=== PATIENT | male | born 1995 | race Caucasian/White ===

== ENCOUNTER 2023-05-11 10:00 | Outpatient (AMB) | payer OTHER, SELFPAY ==
--- NOTE | 2023-05-11 10:05 | MHC.PC.OV ---
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 Transferring care from Dr Hummel ([facility]). Medical records have not been requested and have not received. Loan Service Officer Required: No Client Service Executive: Not Required per policy Accompanied by: Self / Same As Patient Allergies amoxicillin Allergy (Intermediate, Verified 05/11/23 10:38) Hives Penicillins Allergy (Intermediate, Verified 05/11/23 10:38) Hives Medication List - Last Reconciled 05/11/23 by Ankit Elam PA-C No Known Home Meds Tobacco use date assessed: 05/11/23 Dental Screening Dental Screen Date: 05/11/23 Did you have a dental visit in the last 12 months?: No Did you have a dental problem in the last 6 months where you did not have access to dental care?: No Was dental information given to patient?: No 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 Previous PCP was at [facility]. Concern--> reports over the last 12-15 years he has been suffering with and tremor in his upper extremities. He reports a tremor gets worse when trying to feed himself for drink out of a cup, use a pen or pencil to right. His tremor has been causing severe anxiety which has caused him not to be able to hold a job. She is he does not know any tremor at rest. He reports all does not changes tremor. He would like evaluation and possible treatment for this tremor. .. Tobacco dependency: He does report having half pack of cigarettes per day and does understand he needs to quit. Offered nicotine replacement though he declines at this time. Of note was noted to have a 5 mm pulmonary nodule incidentally noted on CT abdomen and pelvis He does report moderately drinking alcohol 4-5 times per week and does understand he needs to cut down his drinking. VAccine: UTD with COVID vaccine, declines flu , need Tdap will like to hold off for now. [facility] Surgical History No pertinent past surgical history Family History (Updated 05/11/23 @ 10:47 by Ankit Elam PA-C) Mother Breast cancer Father Heart disease Other Mental health disorder Substance use disorder Social History (Updated 05/11/23 @ 10:49 by Ankit Elam PA-C) Housing: House Alcohol intake: current Alcohol intake frequency: a few times a week Patient Tobacco Use Status: Current everyday Tobacco user Tobacco use type: Cigarette Cigarette Packs Per Day: 0.5 Cigarettes Per Day: 10 e-Cigarette/Vaping Use: Never Used Second Hand Smoke Exposure: Yes Substance Use Type: Marijuana service: No Current occupational status: unemployed Cognitive needs: No Hearing needs: No Vision needs: Yes (glasses) Questionnaire PHQ-9 Over the last 2 weeks, how often have you been bothered by any of the following problems? 1. Little interest or pleasure in doing things: not at all 2. Feeling down, depressed, or hopeless: not at all 3. Trouble falling or staying asleep, or sleeping too much: not at all 4. Feeling tired or having little energy: not at all 5. Poor appetite or overeating: not at all 6. Feeling bad about yourself - or that you are a failure or have let yourself or your family down: not at all 7. Trouble concentrating on things, such as reading the newspaper or watching television: not at all 8. Moving or speaking so slowly that other people could have noticed. Or the opposite - being so fidgety or restless that you have been moving around a lot more than usual: not at all 9. Thoughts that you would be better off or of hurting yourself in some way: not at all Total score: 0 Depression Screening Interpretation: Negative 85496 - PHQ-9 Billing: Yes Source: Developed by Drs. Ciaran Murillo, Renetta Campbell, Lam Clarke and colleagues, with an educational ashtyn from [employer]. Thrive Questionnaire Date Thrive assessed: 05/11/23 I am a: Patient What is your living situation today?: I have a steady place to live Within the past 12 months, did the food you bought not last and you didn't have the money to get more?: Never true Within the past 12 months, did you worry whether your food would run out before you got money to buy more?: Never true Do you have trouble paying for medicines?: No Do you have trouble getting transportation to medical appointments?: No Do you have trouble paying your heating and electricity bill?: No Do you have trouble taking care of your child, family member or friend?: No Do you have trouble with day-to-day activities such as bathing, preparing meals, shopping, managing finances, etc.?: No Are you currently unemployed and looking for a job?: No Are you interested in more education?: No Currently or been in a relationship where the following occur: no concerns reported AUDIT C Alcohol Use Questionnaire (AUDIT-C) 1. How often do you have a drink containing alcohol?: 2-3 times a week 2. How many drinks containing alcohol do you have on a typical day when you are drinking?: 1 or 2 Total Score: 3 JB-7 AMB Questionnaire JB-7 Date JB - 7 assessed: 05/11/23 Feeling nervous, anxious, or on edge: 2 = More than half the days Not being able to stop or control worryin = More than half the days Worrying too much about different things: 2 = More than half the days Trouble relaxin = More than half the days Being so restless that it is hard to sit still: 2 = More than half the days Becoming easily annoyed or irritable: 3 = Nearly every day Feeling afraid as if something awful might happen: 3 = Nearly every day Total JB-7 score (0-4 normal; 5-9 mild; 10-14 moderate; 15-21 severe): 16 Source: Developed by Drs. Ciaran Murillo, Renetta Campbell, Lam Clarke and colleagues, with an educational ashtyn from [employer]. JB-7 Assessment Billing JB-7 Assessment Tool: JB-7 Assessment 40239 Review of Systems Const Denies headache(s) Eyes Denies loss of vision ENT Denies vertigo, Denies dizziness, Denies headache(s) and Denies sore throat Card Denies chest pain, Denies leg edema and Denies lightheadedness Resp Denies cough, Denies hemoptysis and Denies wheezing GI Denies abdominal pain, Denies melena, Denies constipation, Denies diarrhea and Denies vomiting Denies dysuria, Denies urinary frequency and Denies urinary urgency Musc Denies arthralgias, Denies joint swelling, Denies numbness and Denies tingling Neuro Denies Abnormal speech present, Denies behavioral changes, Denies vertigo, Denies dizziness, Denies headache(s), Denies loss of vision, Denies memory loss, Denies numbness, Denies tingling and Reports tremor(s) Psych Reports anxiety, Denies behavioral changes, Denies depression, Denies memory loss and Denies panic attacks Ezra/Lymph Denies easy bleeding and Denies easy bruising Aller/Immun Denies wheezing Physical exam (Primary Care) Vital Signs: Last Vital Signs Pulse 115 H 05/11/23 10:07 BP 124/80 05/11/23 10:07 Pulse Ox 96 05/11/23 10:07 Oxygen Delivery Method Room Air 05/11/23 10:07 BMI result Body Mass Index 32.4 BMI Assessment/Plan discussion: High Tobacco/Smoking Status: Tobacco use Status Tobacco use date assessed 05/11/23 05/11/23 10:30 Patient Tobacco Use Status Current everyday Tobacco 05/11/23 10:49 Tobacco use type Cigarette 05/11/23 10:49 e-Cigarette/Vaping Use Never Used 05/11/23 10:49 Are you ready to quit: No Tobacco cessation counseling provided: Yes Relapse Prevention: discussed the importance of a supportive environment, weight gain after smoking is common and discussed dietary, exercise and/or lifestyle changes Number of minutes spent counselin CPT code: 53674 - 4-10 Minutes PHQ-9: PHQ-9 Score PHQ-9: Total score 0 05/11/23 10:54 Depression Screening Interpretation: Negative Thrive Assessment: Date of Thrive Assessment Date Thrive assessed 05/11/23 05/11/23 10:30 Currently or been in a relationship where the following occur: no concerns reported Const Other: Obese General: healthy appearing, no acute distress, alert and awake Nutritional Appearance: well nourished Orientation/consciousness: oriented to person, oriented to place and oriented to time HENMT Ears: TM's normal bilaterally General nose exam: Normal nasal mucous membranes and turbinates present Eyes Conjunctivae: conjunctivae normal Sclerae: sclerae normal Pupils: Equal, round and reactive pupils present Neck Neck: Yes no lymphadenopathy and Yes no JVD Thyroid: Thyroid normal Carotids: no bruits Resp Effort & Inspection: normal respiratory effort and not tachypneic Auscultation: no crackles, no rales, no rhonchi and no wheezes Cardio Rate: regular rate Rhythm: regular rhythm Heart sounds: no murmurs and normal S1 and S2 GI Palpation (GI): Soft to palpation, nontender, no hepatomegaly and no splenomegaly Auscultation: normal bowel sounds Skin General skin exam: no rashes or lesions noted and dry skin Neuro General: oriented to person, oriented to place and oriented to time Cranial nerves: Yes Equal, round and reactive pupils present Speech: No Abnormal speech present Gait exam (Neuro): Normal gait present Motor exam (neuro): no tremor noted Extrem Right upper extremity: full ROM Left upper extremity: full ROM Right lower extremity: full ROM; no edema Left lower extremity: full ROM; no edema Psych Mental Status: mental status grossly normal Speech and movement: Normal speech and movement present Affect: normal affect Attitude: cooperative Thought process: Normal thought process present Assessment and Plan Assessment & Plan (1) Annual physical exam: Code(s): Z00.00 - Encounter for general adult medical examination without abnormal findings (2) Tremor: Code(s): R25.1 - Tremor, unspecified Plan: reports over the last 12-15 years he has been suffering with and tremor in his upper extremities. He reports a tremor gets worse when trying to feed himself for drink out of a cup, use a pen or pencil to right. His tremor has been causing severe anxiety which has caused him not to be able to hold a job. Offered referral to the patient therapy to help with compensatory strategies on writing and feeding himself though would like to hold off and try medication for now. Will try propanolol 40 mg b.i.d. for the essential tremor. Will refer to Neurology for further evaluation of his tremors (3) JB (generalized anxiety disorder): Code(s): F41.1 - Generalized anxiety disorder Plan: Patient's JB-7 score positive for moderate anxiety which has been existing condition for him. He feels that his tremors causing most of anxiety as he is not able to make it to family functions as he is afraid about having his tremor. (4) Pulmonary nodule less than 1 cm in diameter with low risk for malignant neoplasm: Code(s): R91.1 - Solitary pulmonary nodule; Z91.89 - Other specified personal risk factors, not elsewhere classified Plan: Noted to have a small 0.5 cm nodule in the right lung incidentally found on CT abdomen pelvis. Patient is a smoker it and will follow-up with his nodule and 1 year. (5) Screening for diabetes mellitus (DM): Code(s): Z13.1 - Encounter for screening for diabetes mellitus (6) Tobacco dependence: Code(s): F17.200 - Nicotine dependence, unspecified, uncomplicated Plan: Patient does understand he needs to quit smoking. Offered nicotine replacement therapy though declines at this time. Will try to work on reducing his cigarette smoking on his own. (7) Obese: Code(s): E66.9 - Obesity, unspecified Qualifiers: Body mass index: BMI 32.0-32.9 Obesity classification: adult class 1 (BMI 30 - 34.9) Obesity type: due to excess calories Serious obesity comorbidity presence: without serious comorbidity Qualified Code(s): E66.09 - Other obesity due to excess calories; Z68.32 - Body mass index [BMI] 32.0-32.9, adult Plan: Patient does understand his BMI is over 30 will work on being physically active and adapting to better eating habits to reduce his weight Orders: Orders TSH reflex Free T4 Today R25.1 - Tremor, unspecified Complete Blood Count no Diff Today Z13.1 - Encounter for screening for diabetes mellitus Comprehensive [place]. Panel Fast Today Z13.1 - Encounter for screening for diabetes mellitus Referrals Neurology Referral R25.1 - Tremor, unspecified Medications: New propranolol 40 mg PO BID 30 days 60 tabs 1RF R25.1 - Tremor, unspecified Coding Level of Care Code New Pt Prev Care 18-39yr([id number] Diagnoses Annual physical exam Z00.00 Tremor R25.1 JB (generalized anxiety disorder) F41.1 Pulmonary nodule less than 1 cm in diameter with low risk for malignant neoplasm R91.1; Z91.89 Screening for diabetes mellitus (DM) Z13.1 Tobacco dependence F17.200 Class 1 obesity due to excess calories without serious comorbidity with body mass index (BMI) of 32.0 to 32.9 in adult E66.09; Z68.32 Body mass index: BMI 32.0-32.9 Obesity classification: adult class 1 (BMI 30 - 34.9) Obesity type: due to excess calories Serious obesity comorbidity presence: without serious comorbidity Additional Codes JB-7 Assessment Billing - JB-7 Assessment Tool: JB-7 Assessment 75820 ([id number]) Vital Signs *Quality* - CPT code: 45801 - 4-10 Minutes ([id number])
[2023-05-11 10:07] VITALS: BP 124/80; PULSE 115; O2SAT 96; BMI 32.4
== END 2023-05-11 11:07 | disposition home or self-care (01) ==
PROVIDERS: PCP Physician Assistant; Visit Provider Physician Assistant
DX: Z00.00 Encounter for general adult medical examination without abnormal findings (principal); F17.210 Nicotine dependence, cigarettes, uncomplicated; Z91.89 Other specified personal risk factors, not elsewhere classified; Z68.32 Body mass index [BMI] 32.0-32.9, adult; E66.09 Other obesity due to excess calories; R25.1 Tremor, unspecified; F41.1 Generalized anxiety disorder; R91.1 Solitary pulmonary nodule
CPT/HCPCS: 99385

== ENCOUNTER 2023-05-16 16:14 | Outpatient (REF) | payer OTHER, SELFPAY ==
[2023-05-16 16:46] LABS: Hematocrit 45.5 % (42.0-52.0); Hemoglobin 15.7 g/dl (14.0-18.0); Mean Corpuscular HGB Conc 34.5 g/dl (31.0-36.0); Mean Corpuscular Hemoglobin 35.5 pg (27.0-33.0); Mean Corpuscular Volume 102.9 fL (80.0-98.0); Mean Platelet Volume 10.3 fL (9.4-12.4); Platelet Count 241 X10*3/uL (160-400); Red Blood Count 4.42 X10*6/uL (4.60-5.80); Red Cell Distribution Width 12.6 % (11.0-16.0); White Blood Count 8.7 X10*3/uL (4.8-10.8)
[2023-05-16 17:33] LABS: Alanine Aminotransferase 174 U/L (0-40); Albumin Level 4.1 g/dL (3.5-5.0); Alkaline Phosphatase 63 U/L (39-117); Anion Gap 14 (12-20); Aspartate Amino Transferase 118 U/L (5-37); Bilirubin Total 0.7 mg/dL (0.0-1.0); Blood Urea Nitrogen 9 mg/dL (9-16); Calcium 9.4 mg/dL (8.4-10.2); Carbon Dioxide 25 mmol/L (22-29); Chloride 101 mmol/L (96-108); Estimated Glomerular Filt Rate > 60; Glucose Fasting 92 mg/dL (60-99); Sodium 136 mmol/L (135-145); Total Protein 6.9 g/dL (6.5-8.0)
[2023-05-16 17:40] LABS: TSH reflex Free T4 1.98 uIU/mL (0.32-4.0)
== END 2023-05-16 16:15 | disposition home or self-care (01) ==
LOC: HO.LAB 16:14
PROVIDERS: PCP Physician Assistant; Visit Provider Physician Assistant
DX: R25.1 Tremor, unspecified (principal); Z13.1 Encounter for screening for diabetes mellitus
CPT/HCPCS: 36415; 80053; 84443; 85027

== ENCOUNTER 2023-06-08 09:50 | Outpatient (REF) | payer OTHER, SELFPAY ==
--- NOTE | ~2023-06-08 | US_ITS ---
EXAMINATION: US ABDOMEN LIMITED CLINICAL INFORMATION: Abnormal levels of other serum enzymes. COMPARISON: None available. TECHNIQUE: Real-time imaging of the right upper quadrant abdominal viscera. FINDINGS: PANCREAS: Largely obscured by overlapping bowel gas. LIVER: There is a longitudinal span of 18.1 cm The liver contour is normal. There is diffuse increased liver parenchymal echogenicity. No focal hepatic lesion. There is no intrahepatic biliary duct dilatation seen. GALLBLADDER: Normal. The gallbladder is physiologically distended without evidence of stones, sludge, polyps, wall thickening or pericholecystic fluid. COMMON BILE DUCT: Normal in caliber measuring 0.4 cm in diameter. RIGHT KIDNEY: Normal. No hydronephrosis. No renal calculi or focal parenchymal lesions. The kidney measures 11.0 cm in maximum dimension. FREE FLUID: None. US/US abdomen limited IMPRESSION: 1. There is hepatomegaly. 2. There is generalized increase in hepatic echotexture, consistent with fatty infiltration or hepatocellular disease. Please correlate clinically. No focal hepatic mass or intrahepatic biliary dilatation is seen. 3. Technically limited ultrasound examination of the pancreas.
== END 2023-06-08 09:51 | disposition home or self-care (01) ==
LOC: HO.US 09:50
PROVIDERS: PCP Physician Assistant; Visit Provider Physician Assistant
DX: R74.8 Abnormal levels of other serum enzymes (principal)
CPT/HCPCS: 76705

== ENCOUNTER 2023-06-08 15:41 | Outpatient (AMB) | payer OTHER, SELFPAY ==
[2023-06-08 15:42] VITALS: BP 120/84; PULSE 72; RESP 17; O2SAT 96; BMI 32.8
--- NOTE | 2023-06-08 15:42 | A.OFFPC_ITS ---
Vital Signs 06/08/23 15:42 Height 5 ft 9 in Weight 222 lb BMI 32.8 BP 120/84 Blood Pressure Location Lt brachial Position Sitting Respiration 17 Pulse 72 Pulse Source Pulse Oximeter Pulse Oximetry (%) 96 Oxygen Delivery Method Room Air Intake Visit Reasons: f/u tremor Program Services Planner Required: No Accompanied by: Significant Other-[place] Allergies amoxicillin Allergy (Intermediate, Verified 06/08/23 15:53) Hives Penicillins Allergy (Intermediate, Verified 06/08/23 15:53) Hives Medication List - Last Reconciled 06/08/23 by Ankit Elam PA-C propranolol 40 mg PO BID 30 days Tobacco use date assessed: 05/11/23 Dental Screening Dental Screen Date: 06/08/23 Did you have a dental visit in the last 12 months?: Yes Did you have a dental problem in the last 6 months where you did not have access to dental care?: No Was dental information given to patient?: Patient has dentist HPI f/u tremor HPI Details Patient is a 28-year-old male here today for follow-up visit. Patient has a past medical history significant for tobacco dependency, essential tremor, generalized anxiety disorder. Concern--> reports recently getting a molar extracted though was not able to be finished. Still has have molar in place. Continues to be in some pain to which he has been taking Tylenol for. He is interested in getting a 2nd opinion from a new dental surgeon. .. Tremor: We have started propanolol 40 mg b.i.d. and reports an and improvement in his tremor. He has been able to write with a pen and pencil and feels less anxious during the day. He is interested in a higher dose the propanolol as he feels it is not as effective as once thought. Most recent labs showing elevated liver enzymes. Ultrasound has been ordered to evaluate for fatty liver disease. Of note he does admit to drinking alcohol on a daily basis which is likely the reason for his elevated liver enzymes. [facility] Surgical History No pertinent past surgical history Family History Mother Breast cancer Father Heart disease Other Mental health disorder Substance use disorder Social History Housing: House Alcohol intake: current Alcohol intake frequency: a few times a week Patient Tobacco Use Status: Current everyday Tobacco user Tobacco use type: Cigarette Cigarette Packs Per Day: 0.5 Cigarettes Per Day: 10 e-Cigarette/Vaping Use: Never Used Second Hand Smoke Exposure: Yes Substance Use Type: Marijuana service: No Current occupational status: unemployed Cognitive needs: No Hearing needs: No Vision needs: Yes (glasses) Questionnaire Thrive Questionnaire Date Thrive assessed: 05/11/23 JB-7 AMB Questionnaire JB-7 Date JB - 7 assessed: 05/11/23 Source: Developed by Drs. Ciaran Murillo, Renetta Campbell, Lam Clarke and colleagues, with an educational ashtyn from [employer]. Review of Systems Const Denies headache(s) Eyes Denies loss of vision ENT Denies vertigo, Denies dizziness, Denies headache(s) and Denies sore throat Card Denies chest pain, Denies leg edema and Denies lightheadedness Resp Denies cough, Denies hemoptysis and Denies wheezing GI Denies abdominal pain, Denies melena, Denies constipation, Denies diarrhea and Denies vomiting Denies dysuria, Denies urinary frequency and Denies urinary urgency Musc Denies arthralgias, Denies joint swelling, Denies numbness and Denies tingling Neuro Denies Abnormal speech present, Denies behavioral changes, Denies vertigo, Denies dizziness, Denies headache(s), Denies loss of vision, Denies memory loss, Denies numbness and Denies tingling Psych Denies anxiety, Denies behavioral changes, Denies depression, Denies memory loss and Denies panic attacks Ezra/Lymph Denies easy bleeding and Denies easy bruising Aller/Immun Denies wheezing Physical exam (Primary Care) Vital Signs: Last Vital Signs Pulse 72 06/08/23 15:42 Resp 17 06/08/23 15:42 BP 120/84 06/08/23 15:42 Pulse Ox 96 06/08/23 15:42 Oxygen Delivery Method Room Air 06/08/23 15:42 BMI result Body Mass Index 32.8 Tobacco/Smoking Status: Tobacco use Status Tobacco use date assessed 05/11/23 06/08/23 15:44 Patient Tobacco Use Status Current everyday Tobacco 06/08/23 15:44 Tobacco use type Cigarette 06/08/23 15:44 e-Cigarette/Vaping Use Never Used 06/08/23 15:44 Thrive Assessment: Date of Thrive Assessment Date Thrive assessed 05/11/23 06/08/23 15:44 Const General: healthy appearing, no acute distress, alert and awake Nutritional Appearance: well nourished Orientation/consciousness: oriented to person, oriented to place and oriented to time HENMT Ears: TM's normal bilaterally General nose exam: Normal nasal mucous membranes and turbinates present Eyes Conjunctivae: conjunctivae normal Sclerae: sclerae normal Pupils: Equal, round and reactive pupils present Neck Neck: Yes no lymphadenopathy and Yes no JVD Thyroid: Thyroid normal Carotids: no bruits Resp Effort & Inspection: normal respiratory effort and not tachypneic Auscultation: no crackles, no rales, no rhonchi and no wheezes Cardio Rate: regular rate Rhythm: regular rhythm Heart sounds: no murmurs and normal S1 and S2 GI Palpation (GI): Soft to palpation, nontender, no hepatomegaly and no splenomegaly Auscultation: normal bowel sounds Skin General skin exam: no rashes or lesions noted and dry skin Neuro General: oriented to person, oriented to place and oriented to time Cranial nerves: Yes Equal, round and reactive pupils present Speech: No Abnormal speech present Gait exam (Neuro): Normal gait present Motor exam (neuro): no tremor noted Extrem Right upper extremity: full ROM Left upper extremity: full ROM Right lower extremity: full ROM; no edema Left lower extremity: full ROM; no edema Psych Mental Status: mental status grossly normal Speech and movement: Normal speech and movement present Affect: normal affect Attitude: cooperative Thought process: Normal thought process present Assessment and Plan Assessment & Plan (1) Tremor: Code(s): R25.1 - Tremor, unspecified Plan: As per HPI patient has an intentional tremor. Since starting propanolol he reports his tremor is much improved. He would like a higher dose of the propanolol for better effectiveness. Will switch to 60 mg extended release once a day dosing. Will be considering seeing a neurologist. (2) Tobacco dependence: Code(s): F17.200 - Nicotine dependence, unspecified, uncomplicated Plan: Unfortunately continues to smoke. Has no interest in quitting smoking at this time. (3) Elevated liver enzymes: Code(s): R74.8 - Abnormal levels of other serum enzymes Plan: Noted elevated liver enzymes on most recent labs. Recently has gotten ult rasound of abdomen and waiting reports. He does report drinking alcohol daily and is willing to cut down his alcohol consumption. (4) Pain, dental: Code(s): K08.89 - Other specified disorders of teeth and supporting structures Plan: Recently underwent a dental extraction though dental surgeon left have to then. Continues to have pain. Will supply patient with tramadol to use on a p.r.n. basis for pain scales. Advised the use of ibuprofen 800. He will try to get 2nd opinion from new dental surgeon. (5) Alcohol use disorder: Code(s): F10.90 - Alcohol use, unspecified, uncomplicated Plan: He does admit to using alcohol daily basis. Noted liver enzymes elevated on most recent labs. He promises to cut down his alcohol consumption. Medications: New tramadol 50 mg PO DAILY 6 days 6 tabs 0RF K08.89 - Other specified disorders of teeth and supporting structures ibuprofen 800 mg PO Q8H 7 days PRN 21 tabs 0RF pain K08.89 - Other specified disorders of teeth and supporting structures propranolol ER 60 mg PO DAILY 30 days 30 caps 2RF R25.1 - Tremor, unspecified Discontinued propranolol Discontinued Reason: Doctor's Order 40 mg PO BID 30 days 60 tabs 1RF R25.1 - Tremor, unspecified Coding Level of Care Code Est Pt Level 4 (37082) Diagnoses Tremor R25.1 Tobacco dependence F17.200 Elevated liver enzymes R74.8 Pain, dental K08.89 Alcohol use disorder F10.90
== END 2023-06-08 16:12 | disposition home or self-care (01) ==
PROVIDERS: PCP Physician Assistant; Visit Provider Physician Assistant
DX: R25.1 Tremor, unspecified (principal); F17.200 Nicotine dependence, unspecified, uncomplicated; R74.8 Abnormal levels of other serum enzymes; K08.89 Other specified disorders of teeth and supporting structures; F10.90 Alcohol use, unspecified, uncomplicated
CPT/HCPCS: 99214

== ENCOUNTER 2023-09-14 13:56 | Outpatient (AMB) | payer OTHER, SELFPAY ==
[2023-09-14 14:05] VITALS: BP 134/102; PULSE 105; O2SAT 98; BMI 32.1
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
== END 2023-09-14 14:36 | disposition home or self-care (01) ==
PROVIDERS: PCP Physician Assistant; Visit Provider Physician Assistant
DX: R25.1 Tremor, unspecified (principal); E66.09 Other obesity due to excess calories; Z68.32 Body mass index [BMI] 32.0-32.9, adult; F10.90 Alcohol use, unspecified, uncomplicated; M54.2 Cervicalgia
CPT/HCPCS: 99214

== ENCOUNTER 2023-09-28 11:57 | Outpatient (REF) | payer OTHER, SELFPAY ==
--- NOTE | ~2023-09-28 | XR_ITS ---
EXAMINATION: CERVICAL SPINE 3 VIEWS CLINICAL INFORMATION: Cervicalgia. COMPARISON: None. TECHNIQUE: Frontal, lateral and odontoid views are obtained. FINDINGS: Vertebral body heights and alignment are normal. The disc spaces are well-maintained. No acute fracture or spondylolisthesis is seen. The posterior elements are intact. There is no prevertebral soft tissue swelling. The dens and C7-T1 interface are normal. XR/XR cervical spine 3V IMPRESSION: Negative examination.
== END 2023-09-28 11:58 | disposition home or self-care (01) ==
LOC: HO.XRAY 11:57
PROVIDERS: PCP Physician Assistant; Visit Provider Physician Assistant
DX: M54.2 Cervicalgia (principal)
CPT/HCPCS: 72040

== ENCOUNTER 2023-10-19 14:45 | Outpatient (AMB) | payer OTHER, SELFPAY ==
--- NOTE | 2023-10-19 15:07 | MHC.PC.OV ---
Vital Signs 10/19/23 15:19 Height 5 ft 9 in Weight 222 lb 4 oz BMI 32.8 BP 110/80 Blood Pressure Location Lt brachial Position Sitting Pulse 82 Pulse Source Pulse Oximeter Pulse Oximetry (%) 96 Oxygen Delivery Method Room Air Intake Visit Reasons: f/u tremor Software Specialist Required: No Accompanied by: Self / Same As Patient Allergies amoxicillin Allergy (Intermediate, Verified 10/19/23 15:22) Hives Penicillins Allergy (Intermediate, Verified 10/19/23 15:22) Hives Medication List - Last Reconciled 10/19/23 by Ankit Elam PA-C ibuprofen 800 mg PO Q8H PRN 7 days primidone 50 mg PO BEDTIME 30 days propranolol ER 60 mg PO DAILY 30 days tramadol 50 mg PO DAILY 6 days Tobacco use date assessed: 09/14/23 Dental Screening Dental Screen Date: 10/19/23 Did you have a dental visit in the last 12 months?: Yes Did you have a dental problem in the last 6 months where you did not have access to dental care?: No Was dental information given to patient?: Patient has dentist HPI f/u tremor HPI Details Patient is a 28-year-old male here today for follow-up visit. Patient has a past medical history significant for tobacco dependency, essential tremor, generalized anxiety disorder. .. Tremor: The last visit we started propanolol 60 and primidone 50 mg at night. He reports his tremor has been better though still present at times. He does have upcoming appointment with Neurology. .. Elevated blood pressure readings: Blood pressure much improved today in office. Has been on propanolol 60 mg daily. .. Tobacco use disorder: He does report smoking 4-5 cigarettes per day. He does understand he needs to quit. Interested in nicotine replacement at this time. [facility] Surgical History No pertinent past surgical history Family History Mother Breast cancer Father Heart disease Other Mental health disorder Substance use disorder Social History Housing: House Alcohol intake: current Alcohol intake frequency: a few times a week Patient Tobacco Use Status: Current everyday Tobacco user Tobacco use type: Cigarette Cigarette Packs Per Day: 0.5 Cigarettes Per Day: 10 e-Cigarette/Vaping Use: Never Used Second Hand Smoke Exposure: Yes Substance Use Type: Marijuana service: No Current occupational status: unemployed Cognitive needs: No Hearing needs: No Vision needs: Yes (glasses) Questionnaire Thrive Questionnaire Date Thrive assessed: 09/14/23 JB-7 AMB Questionnaire JB-7 Date JB - 7 assessed: 09/14/23 Source: Developed by Drs. Ciaran Murillo, Renetta Campbell, Lam Clarke and colleagues, with an educational ashtyn from [employer]. Review of Systems Const Denies headache(s) Eyes Denies loss of vision ENT Denies vertigo, Denies dizziness, Denies headache(s) and Denies sore throat Card Denies chest pain, Denies leg edema and Denies lightheadedness Resp Denies cough, Denies hemoptysis and Denies wheezing GI Denies abdominal pain, Denies melena, Denies constipation, Denies diarrhea and Denies vomiting Denies dysuria, Denies urinary frequency and Denies urinary urgency Musc Denies arthralgias, Denies joint swelling, Denies numbness and Denies tingling Neuro Denies Abnormal speech present, Denies behavioral changes, Denies vertigo, Denies dizziness, Denies headache(s), Denies loss of vision, Denies memory loss, Denies numbness and Denies tingling Psych Denies anxiety, Denies behavioral changes, Denies depression, Denies memory loss and Denies panic attacks Ezra/Lymph Denies easy bleeding and Denies easy bruising Aller/Immun Denies wheezing Physical exam (Primary Care) Vital Signs: Last Vital Signs Pulse 82 10/19/23 15:19 BP 110/80 10/19/23 15:19 Pulse Ox 96 10/19/23 15:19 Oxygen Delivery Method Room Air 10/19/23 15:19 BMI result Body Mass Index 32.8 Tobacco/Smoking Status: Tobacco use Status Tobacco use date assessed 09/14/23 10/19/23 15:07 Patient Tobacco Use Status Current everyday Tobacco 10/19/23 15:07 Tobacco use type Cigarette 10/19/23 15:07 e-Cigarette/Vaping Use Never Used 10/19/23 15:07 Thrive Assessment: Date of Thrive Assessment Date Thrive assessed 09/14/23 10/19/23 15:07 Const General: healthy appearing, no acute distress, alert and awake Nutritional Appearance: well nourished Orientation/consciousness: oriented to person, oriented to place and oriented to time HENMT Ears: TM's normal bilaterally General nose exam: Normal nasal mucous membranes and turbinates present Eyes Conjunctivae: conjunctivae normal Sclerae: sclerae normal Pupils: Equal, round and reactive pupils present Neck Neck: Yes no lymphadenopathy and Yes no JVD Thyroid: Thyroid normal Carotids: no bruits Resp Effort & Inspection: normal respiratory effort and not tachypneic Auscultation: no crackles, no rales, no rhonchi and no wheezes Cardio Rate: regular rate Rhythm: regular rhythm Heart sounds: no murmurs and normal S1 and S2 GI Palpation (GI): Soft to palpation, nontender, no hepatomegaly and no splenomegaly Auscultation: normal bowel sounds Skin General skin exam: no rashes or lesions noted and dry skin Neuro General: oriented to person, oriented to place and oriented to time Cranial nerves: Yes Equal, round and reactive pupils present Speech: No Abnormal speech present Gait exam (Neuro): Normal gait present Motor exam (neuro): no tremor noted Extrem Right upper extremity: full ROM Left upper extremity: full ROM Right lower extremity: full ROM; no edema Left lower extremity: full ROM; no edema Psych Mental Status: mental status grossly normal Speech and movement: Normal speech and movement present Affect: normal affect Attitude: cooperative Thought process: Normal thought process present Assessment and Plan Assessment & Plan (1) Tremor: Code(s): R25.1 - Tremor, unspecified Plan: Reports he is having better days with his tremors since starting primidone and propranolol on a daily basis. He has not started any occupational therapy at this time. Does have upcoming appointment with Neurology on January 03 He is interested in increasing his dose of primidone to 100 mg at night for better control over his tremor. We did send him for cervical spine x-ray due to his reports of cervical spine injury years ago though no notable issue in his cervical spine. (2) Tobacco dependence: Code(s): F17.200 - Nicotine dependence, unspecified, uncomplicated Plan: Patient does understand he needs to quit smoking. Offered nicotine replacement though he declines at this time. Medications: New primidone 100 mg (2 x 50 mg) PO BEDTIME 30 days 60 tabs 3RF R25.1 - Tremor, unspecified Refilled propranolol ER 60 mg PO DAILY 30 days 30 caps 3RF R25.1 - Tremor, unspecified Discontinued primidone Discontinued Reason: Doctor's Order 50 mg PO BEDTIME 30 days 30 tabs 1RF R25.1 - Tremor, unspecified Coding Level of Care Code Est Pt Level 4 (26041) Diagnoses Tremor R25.1 Tobacco dependence F17.200
[2023-10-19 15:19] VITALS: BP 110/80; PULSE 82; O2SAT 96; BMI 32.8
== END 2023-10-19 15:35 | disposition home or self-care (01) ==
PROVIDERS: PCP Physician Assistant; Visit Provider Physician Assistant
DX: R25.1 Tremor, unspecified (principal); F17.210 Nicotine dependence, cigarettes, uncomplicated
CPT/HCPCS: 99214

== ENCOUNTER 2024-01-04 10:01 | Outpatient (AMB) | payer OTHER, SELFPAY ==
[2024-01-04 10:05] VITALS: BP 142/90; PULSE 102; O2SAT 94; BMI 32.3
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
== END 2024-01-04 11:20 | disposition home or self-care (01) ==
PROVIDERS: PCP Physician Assistant; Visit Provider Nurse Practitioner Family
DX: R25.1 Tremor, unspecified (principal); R29.2 Abnormal reflex; R26.9 Unspecified abnormalities of gait and mobility
CPT/HCPCS: 99204

== ENCOUNTER → 2024-01-04 10:01 | Outpatient (BNVA) | payer OTHER, SELFPAY | PROVIDERS: PCP Physician Assistant; Visit Provider Nurse Practitioner Family | DX: R25.1 Tremor, unspecified (principal); R29.2 Abnormal reflex; R26.9 Unspecified abnormalities of gait and mobility | CPT/HCPCS: 99202 ==

== ENCOUNTER 2024-01-18 13:48 | Outpatient (REF) | payer OTHER, SELFPAY ==
--- NOTE | 2024-01-18 16:22 | EMG_ITS ---
Chief complaint: Tremors, occasional numbness on knee area right. On exam, no footdrop. No fasciculations seen. No signs of spasticity or clonus. Reason for referral: Evaluate for neuropathy Referred by: Carola Morales NP Procedure done: Bilateral lower extremity NCS/EMG Precautions and/or limitations: Poor tolerance of test, patient started to become anxious and sweaty. The limb temperature was monitored continuously and remained between 32-36 degrees C during the performance of the NCS. Nerve Conduction Studies Anti Sensory Summary Table ?Stim Site NR Onset (ms) Norm Onset (ms) Peak (ms) Norm Peak (ms) O-P Amp (?V) Norm O-P Amp Site1 Site2 Delta-0 (ms) Dist (cm) Ascencion (m/s) Norm Ascencion (m/s) Left Sural Anti Sensory (Lat Mall) Calf ? 2.9 3.5 <4.0 12.3 >5.0 Calf Lat Mall 2.9 14.0 48 Right Sural Anti Sensory (Lat Mall) Calf ? 3.0 3.7 <4.0 13.0 >5.0 Calf Lat Mall 3.0 14.0 47 Motor Summary Table ?Stim Site NR Onset (ms) Norm Onset (ms) O-P Amp (mV) Norm O-P Amp iAmp (mV) Amp (1st) (%) Site1 Site2 Delta-0 (ms) Dist (cm) Ascencion (m/s) Norm Ascencion (m/s) Right Peroneal Motor (Ext Dig Brev) Ankle ? 3.7 <4.0 8.1 >2.5 9.9 100.0 Ankle Ext Dig Brev 3.7 0.0 B Fib ? 10.7 6.8 8.1 84.0 B Fib Ankle 7.0 33.0 47 >40 Poplt ? 11.5 6.8 8.1 84.0 Poplt B Fib 0.8 4.0 50 >40 Left Tibial Motor (Abd Rocha Brev) Ankle ? 3.8 <5 9.2 >2.5 12.3 100.0 Ankle Abd Rocha Brev 3.8 0.0 Knee ? 12.1 10.7 13.5 116.3 Knee Ankle 8.3 41.0 49 >40 Right Tibial Motor (Abd Rocha Brev) Ankle ? 3.4 <5 7.4 >2.5 10.3 100.0 Ankle Abd Rocha Brev 3.4 0.0 Knee ? 11.7 7.2 9.7 97.3 Knee Ankle 8.3 43.0 52 >40 EMG ?Side Muscle Nerve Root Ins Act Fibs Psw Amp Dur Poly Recrt Int Pat Comment Right AntTibialis Dp Br Peron L4-5 Nml Nml Nml Nml Nml 0 Nml Complete Right MedGastroc Tibial S1-2 Nml Nml Nml Nml Nml 0 Nml Complete Right VastusMed Femoral L2-4 Nml Nml Nml Nml Nml 0 Nml Complete Left AntTibialis Dp Br Peron L4-5 Nml Nml Nml Nml Nml 0 Nml Complete Left MedGastroc Tibial S1-2 Nml Nml Nml Nml Nml 0 Nml Complete FINDINGS: Insert normal NCS upper extremity Concentric needle EMG was performed in selected muscles of the bilateral lower extremity. Study did not reveal signs of electric abnormalities in any of the muscles tested. IMPRESSION: 1. This is a normal study. 2. There is no electrodiagnostic evidence of peripheral neuropathy, peroneal neuropathy, tibial neuropathy or lumbosacral plexopathy. 3. There is no evidence of radiculopathy or motor disorder based on muscles sampled for needle EMG. Thank you for your kind referral. Masha Baldwin MD, CHRISTINA Board Certified, [place] [employer] and [employer] (ABPMR) Board Certified, [place] Board of Electrodiagnostic Medicine (ABEM) CODIN [id number] x 2 MTDD
== END 2024-01-18 13:49 | disposition home or self-care (01) ==
LOC: HO.NEURO 13:48
PROVIDERS: PCP Physician Assistant; Visit Provider Nurse Practitioner Family
DX: R29.2 Abnormal reflex (principal); R26.9 Unspecified abnormalities of gait and mobility; R25.1 Tremor, unspecified
CPT/HCPCS: 95885; 95909

== ENCOUNTER → 2024-01-18 16:22 | Outpatient (BNV) | payer OTHER, SELFPAY | PROVIDERS: PCP Physician Assistant; Visit Provider Physical Medicine & Rehabilitation | DX: R20.2 Paresthesia of skin (principal) | CPT/HCPCS: 95885; 95909 ==

== ENCOUNTER 2024-02-08 09:26 | Outpatient (REF) | payer OTHER, SELFPAY ==
--- NOTE | ~2024-02-08 | XR_ITS ---
EXAMINATION: CHEST x-ray. INDICATION: History of metallic exposure, evaluate for shunt medial in upper chest before MRI examination. TECHNIQUE: Frontal and lateral chest x-rays FINDINGS: vascularity. LUNGS: Lungs are in expiration and clear. No pneumothorax is seen. BONES: Bony skeleton is intact. XR/XR pre mri screening IMPRESSION: Normal chest x-ray.
--- NOTE | ~2024-02-08 | MR_ITS ---
EXAMINATION: MR BRAIN WITHOUT CONTRAST MR CERVICAL SPINE WITHOUT CONTRAST CLINICAL INFORMATION: Tremor COMPARISON: None. TECHNIQUE: MRI of the brain and cervical spine was obtained using routine sequences without contrast. The cervical spine examination was terminated early secondary to patient discomfort. No intravenous contrast was administered. FINDINGS: MRI BRAIN: Suboptimal evaluation with significant motion degradation on the FLAIR sequence. There is no reduced diffusion to suggest acute infarct. Susceptibility weighted sequence is within normal limits. No midline shift or downward herniation. The ventricles and sulci are normal in size and configuration. Intracranial flow voids are preserved. Trace scattered paranasal sinus mucosal thickening. The mastoid air cells are well-aerated. No focal expansile or destructive osseous lesion. MRI CERVICAL SPINE: Early exam termination. Only a sagittal T2 sequence and a motion degraded sagittal T1 sequence were obtained. Reversal of the normal cervical lordosis. Trace retrolisthesis of C5-C6. Cervical vertebral body heights are maintained. Marrow signal is not well assessed given motion degradation. No gross spinal cord signal abnormality. Multilevel mild degenerative changes without significant spinal canal stenosis. The neural foramen are not well assessed given lack of axial sequences. MR/MR head/brain wo con IMPRESSION: MRI BRAIN: Significant motion degradation on the FLAIR sequence. Within this constraint, no acute infarction or mass effect is visualized. MRI CERVICAL SPINE: Early exam termination. Only a sagittal T2 sequence and a motion degraded sagittal T1 sequence were obtained. No significant spinal canal stenosis or gross spinal cord signal abnormality within this constraint. The neural foramen cannot be assessed.
--- NOTE | ~2024-02-08 | MR_ITS ---
EXAMINATION: MR BRAIN WITHOUT CONTRAST MR CERVICAL SPINE WITHOUT CONTRAST CLINICAL INFORMATION: Tremor COMPARISON: None. TECHNIQUE: MRI of the brain and cervical spine was obtained using routine sequences without contrast. The cervical spine examination was terminated early secondary to patient discomfort. No intravenous contrast was administered. FINDINGS: MRI BRAIN: Suboptimal evaluation with significant motion degradation on the FLAIR sequence. There is no reduced diffusion to suggest acute infarct. Susceptibility weighted sequence is within normal limits. No midline shift or downward herniation. The ventricles and sulci are normal in size and configuration. Intracranial flow voids are preserved. Trace scattered paranasal sinus mucosal thickening. The mastoid air cells are well-aerated. No focal expansile or destructive osseous lesion. MRI CERVICAL SPINE: Early exam termination. Only a sagittal T2 sequence and a motion degraded sagittal T1 sequence were obtained. Reversal of the normal cervical lordosis. Trace retrolisthesis of C5-C6. Cervical vertebral body heights are maintained. Marrow signal is not well assessed given motion degradation. No gross spinal cord signal abnormality. Multilevel mild degenerative changes without significant spinal canal stenosis. The neural foramen are not well assessed given lack of axial sequences. MR/MR cervical spine wo con IMPRESSION: MRI BRAIN: Significant motion degradation on the FLAIR sequence. Within this constraint, no acute infarction or mass effect is visualized. MRI CERVICAL SPINE: Early exam termination. Only a sagittal T2 sequence and a motion degraded sagittal T1 sequence were obtained. No significant spinal canal stenosis or gross spinal cord signal abnormality within this constraint. The neural foramen cannot be assessed.
== END 2024-02-08 09:27 | disposition home or self-care (01) ==
LOC: HO.MRI 09:26
PROVIDERS: PCP Physician Assistant; Visit Provider Nurse Practitioner Family
DX: R25.1 Tremor, unspecified (principal); R29.2 Abnormal reflex; R26.9 Unspecified abnormalities of gait and mobility
CPT/HCPCS: 70551; 72141

== ENCOUNTER 2024-02-23 07:35 | Outpatient (AMB) | payer SELFPAY ==
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
[2024-02-23 07:36] VITALS: BP 118/72; PULSE 113; RESP 16; O2SAT 98; BMI 32.3
== END 2024-02-23 08:27 | disposition home or self-care (01) ==
LOC: HO.HSMS 07:35
PROVIDERS: PCP Physician Assistant; Visit Provider Nurse Practitioner Family
DX: R25.1 Tremor, unspecified (principal); R00.0 Tachycardia, unspecified; R61 Generalized hyperhidrosis; R53.83 Other fatigue; Z82.49 Family history of ischemic heart disease and other diseases of the circulatory system
CPT/HCPCS: 99214

== ENCOUNTER → 2024-02-23 07:35 | Outpatient (BNVA) | payer OTHER, SELFPAY | PROVIDERS: PCP Physician Assistant; Visit Provider Nurse Practitioner Family | DX: R25.1 Tremor, unspecified (principal); R00.0 Tachycardia, unspecified; R61 Generalized hyperhidrosis; R53.83 Other fatigue; Z82.49 Family history of ischemic heart disease and other diseases of the circulatory system | CPT/HCPCS: 99212 ==

== ENCOUNTER 2024-06-06 15:28 | Outpatient (AMB) | payer OTHER, SELFPAY ==
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
[2024-06-06 15:36] VITALS: BP 132/100; PULSE 122; O2SAT 95; BMI 28.5
== END 2024-06-06 16:11 | disposition home or self-care (01) ==
PROVIDERS: PCP Physician Assistant; Visit Provider Physician Assistant
DX: Z00.00 Encounter for general adult medical examination without abnormal findings (principal); F17.210 Nicotine dependence, cigarettes, uncomplicated; G25.81 Restless legs syndrome; G57.90 Unspecified mononeuropathy of unspecified lower limb; R74.8 Abnormal levels of other serum enzymes

== ENCOUNTER → 2024-06-06 15:28 | Outpatient (BNVA) | payer OTHER, SELFPAY | PROVIDERS: PCP Physician Assistant; Visit Provider Physician Assistant | DX: Z00.01 Encounter for general adult medical examination with abnormal findings (principal); R25.1 Tremor, unspecified; G57.90 Unspecified mononeuropathy of unspecified lower limb; R74.8 Abnormal levels of other serum enzymes; F17.200 Nicotine dependence, unspecified, uncomplicated; Z71.6 Tobacco abuse counseling | CPT/HCPCS: 96127; 99395 ==

== ENCOUNTER 2024-06-20 09:56 | Outpatient (REF) | payer OTHER, SELFPAY | END 2024-06-20 09:57 | disposition home or self-care (01) | LOC: HO.US 09:56 | PROVIDERS: PCP Physician Assistant; Visit Provider Physician Assistant | DX: R74.8 Abnormal levels of other serum enzymes (principal) | CPT/HCPCS: 76700 ==

== ENCOUNTER 2024-07-16 16:05 | Outpatient (REF) | payer OTHER, SELFPAY ==
[2024-07-16 16:41] LABS: MANUAL DIFF FLAG NO
[2024-07-16 16:43] LABS: Basophils Absolute Auto 0.1 X10*3/uL (0.0-0.2); Basophils Percent Auto 0.9 % (0-2); Eosinophils Absolute Auto 0.3 X10*3/uL (0.0-0.4); Eosinophils Percent Auto 2.9 % (0-4); Hematocrit 51.9 % (42.0-52.0); Hemoglobin 18.3 g/dl (14.0-18.0); Imm Gran Abs Auto 0.03 X10*3/uL (0.00-0.03); Imm Gran Pct Auto 0.3 % (0.0-0.4); Lymphocytes Percent Auto 19.5 % (20-40); Mean Corpuscular HGB Conc 35.3 g/dl (31.0-36.0); Mean Corpuscular Hemoglobin 39.9 pg (27.0-33.0); Mean Platelet Volume 9.5 fL (9.4-12.4); Monocytes Absolute Auto 0.8 X10*3/uL (0.1-1.2); Monocytes Percent Auto 7.9 % (2-11); Neutrophils Percent Auto 68.5 % (45-73); Platelet Count 314 X10*3/uL (160-400); Red Blood Count 4.59 X10*6/uL (4.60-5.80); Red Cell Distribution Width 13.8 % (11.0-16.0); White Blood Count 10.3 X10*3/uL (4.8-10.8)
[2024-07-16 16:47] LABS: Mean Corpuscular Volume 113.1 fL (80.0-98.0)
[2024-07-16 17:08] LABS: Estimated Average Glucose 91 mg/dL; Hemoglobin A1C 134.1613 umol/L; Hemoglobin A1c % 4.8 % (<6.0); Total Hemoglobin (HGBA1C) 4679.5129 umol/L
[2024-07-16 17:22] LABS: Erythrocyte Sedimentation Rate 1 MM/HR (0-15)
[2024-07-16 17:37] LABS: Alanine Aminotransferase 110 U/L (0-40); Albumin Level 4.3 g/dL (3.5-5.0); Alkaline Phosphatase 75 U/L (39-117); Anion Gap 13 (12-20); Aspartate Amino Transferase 104 U/L (5-37); Bilirubin Total 1.1 mg/dL (0.0-1.0); Blood Urea Nitrogen 6 mg/dL (9-16); Calcium 9.2 mg/dL (8.4-10.2); Carbon Dioxide 21 mmol/L (22-29); Chloride 107 mmol/L (96-108); Estimated Glomerular Filt Rate > 60; Glucose Random 135 mg/dL (60-115); Iron 118 mcg/dL (45-160); Percent Iron Saturation 30 % (15-50); Potassium 3.8 mmol/L (3.3-5.1); Rheumatoid Factor < 13.0 IU/mL (<15.0); Sodium 137 mmol/L (135-145); Total Iron Binding Capacity 387 mcg/dL (228-428); Total Protein 7.3 g/dL (6.5-8.0); Unsaturated Iron Binding 269 ug/dL
[2024-07-16 17:47] LABS: Ferritin 393 ng/mL (20-250); TSH reflex Free T4 1.51 uIU/mL (0.32-4.0)
[2024-07-16 18:01] LABS: Folate 3.4 ng/mL (> or = 4.0); Vitamin B12 300 pg/mL (200-900)
[2024-07-17 03:54] LABS: Syphilis Screen Nonreactive (Nonreactive)
[2024-07-17 04:19] LABS: HBc Num1 0.06 S/CO (0.00-0.79); HBsAGNum1 0.36 S/CO (0.00-0.99); HIV AB/AG Nonreactive (Nonreactive); HIV Num 1 0.05 S/CO (0.00-0.99); Hepatitis B Core Antibody Nonreactive (Nonreactive); Hepatitis B Surface Antigen Negative (Negative); ~HepC Num1 0.06 S/CO (0.00-0.79); ~Hepatitis B Surface Antibody NONREACTIVE (Nonreactive); ~Hepatitis C Antibody Nonreactive (Nonreactive)
[2024-07-17 12:14] LABS: Ceruloplasmin 35 mg/dL (14-30)
[2024-07-18 14:48] LABS: Anti Nuclear Antibody Screen NEGATIVE (NEGATIVE)
[2024-07-20 17:28] LABS: Vitamin B1 <6 nmol/L (8-30); Vitamin D 25-OH, D2 <4 ng/mL; Vitamin D 25-OH, D3 17 ng/mL; Vitamin D 25-OH, Total 17 ng/mL (30-100)
[2024-07-20 18:28] LABS: Vitamin K1 238 pg/mL (130-1500)
[2024-07-21 02:19] LABS: Alpha-Tocopherol 5.9 mg/L (5.7-19.9); Beta-Gamma Tocopherol <1.0 mg/L (<=4.3); Vitamin A 14 mcg/dL (38-98)
[2024-07-22 16:09] LABS: Vitamin B2 (Riboflavin) <5.0 nmol/L (6.2-39.0); Vitamin B5 (Pantothenic Acid) <=40 ng/mL (<275)
[2024-07-24 15:23] LABS: Vitamin B6 8.2 ng/mL (2.1-21.7)
[2024-07-25 15:58] LABS: Nicotinamide <20 ng/mL (see note); Vit B3 - Nicotinic Acid <20 ng/mL (see note)
== END 2024-07-16 16:06 | disposition home or self-care (01) ==
LOC: HO.LAB 16:05
PROVIDERS: PCP Physician Assistant; Visit Provider Nurse Practitioner Family
DX: R00.0 Tachycardia, unspecified (principal); R25.1 Tremor, unspecified; R61 Generalized hyperhidrosis
CPT/HCPCS: 36415; 80053; 82306; 82390; 82550; 82607; 82728; 82746; 83036; 83540; 84207; 84252; 84425; 84443; 84446; 84590; 84591; 84597; 85025; 85652; 86038; 86431; 86704; 86706; 86780; 86803; 87340; 87389

== ENCOUNTER 2024-07-17 14:57 | Outpatient (AMB) | payer OTHER, SELFPAY ==
[2024-07-17 15:05] VITALS: BP 116/80; PULSE 113; O2SAT 96; BMI 27.6
--- NOTE | 2024-07-17 15:05 | MHC.OFFVIS ---
Vital Signs 07/17/24 15:05 Height 5 ft 9 in Weight 187 lb BMI 27.6 BP 116/80 Blood Pressure Location Rt brachial Position Sitting Pulse 113 H Pulse Source Pulse Oximeter Pulse Oximetry (%) 96 Oxygen Delivery Method Room Air Intake Visit Reasons: Follow up Digital Project Coordinator Required: No Accompanied by: Self / Same As Patient Allergies amoxicillin Allergy (Intermediate, Verified 07/17/24 15:08) Hives Penicillins Allergy (Intermediate, Verified 07/17/24 15:08) Hives HPI Comments Details: 29-yr-old male presents for f/u visit.He was in the hospital last week for increased tingling in his feet and legs affecting his sleep.It does not affect him when he is moving .It is worse when he is trying to sleep, at rest and in the evenings.He gets up and walks at night to help with discomfort. He reports a stabbing sensation in his feet. No neck or back pain His gait is stable . No falls. His tremors are mild.He is embarrassed because of his tremors , worried he cannot drive etc. Pt could not fully complete brain and c-spine MRI- however no significant findings noted. The BLE EMG/NCS- was normal. He stopped his Primidone and Propranolol - d/t loose stools. He is on gabapentin 300mg bid for 1 week and feels it is helping some . 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 Cognitive needs: No Hearing needs: No Vision needs: Yes (glasses) Physical Exam Vital Signs: Last Vital Signs Pulse 113 H 07/17/24 15:05 BP 116/80 07/17/24 15:05 Pulse Ox 96 07/17/24 15:05 Oxygen Delivery Method Room Air 07/17/24 15:05 BMI result Body Mass Index 27.6 Const General: cooperative, healthy appearing and anxious Nutritional Appearance: average body habitus Orientation/consciousness: patient oriented x3 Eyes Pupils: Equal, round and reactive pupils present Neuro Other: Umair UE postural and action tremors Archimedes spiral - figure was recognizable bilaterally Mild antalgic gait General: patient oriented x3, tone normal, moves all extremities and no focal motor deficits Cranial nerves: Yes Facial sensation intact/muscles of mastication intact, Yes Equal, round and reactive pupils present, Yes Nystagmus not present and Yes Normal facial strength present Cognition (Neuro): abnormal cognition Deep tendon reflexes (DTR's): Right triceps reflex intensity grade: 2+, Left triceps reflex intensity grade: 2+, Rt Biceps (C5, C6): 2+, Left biceps reflex intensity grade: 2+, Right brachioradialis reflex intensity grade: 2+, Left brachioradialis reflex intensity grade: 2+, Right patellar reflex intensity grade: 2+, Left patellar reflex intensity grade: 3+ and Right ankle reflex intensity grade: 3+ Coordination: urglwd-[id number] test normal Results Reviewed Results Reviewed: MR/MR head/brain wo con IMPRESSION: MRI BRAIN: Significant motion degradation on the FLAIR sequence. Within this constraint, no acute infarction or mass effect is visualized. MRI CERVICAL SPINE: Early exam termination. Only a sagittal T2 sequence and a motion degraded sagittal T1 sequence were obtained. No significant spinal canal stenosis or gross spinal cord signal abnormality within this constraint. The neural foramen cannot be assessed. Assessment & Plan Assessment & Plan (1) Tremor: Comment: postural and action tremors - essential tremors, multifactorial Code(s): R25.1 - Tremor, unspecified Category: Medical (2) RLS (restless legs syndrome): Code(s): G25.81 - Restless legs syndrome Category: Medical (3) Alcohol use disorder: Code(s): F10.90 - Alcohol use, unspecified, uncomplicated Category: Medical Plan Increase gabapentin 300mg qam and 600mg qhs His EMG was normal - he could have small fiber neuropathy due to alcohol use disorder. will consider zonegran during his next visit He will be a good candidate for Calatrio. Reviewed labs - still waiting on some results He has normal ferritin and B12 He wants to be evaluated for tachycardia - will defer this to PCP Medications: Discontinued ropinirole administer 1-3 hours before bedtime Discontinued Reason: Patient no longer taking 0.5 mg PO BEDTIME 30 days 30 tabs 1RF G25.81 - Restless legs syndrome propranolol ER Discontinued Reason: Patient no longer taking 60 mg PO DAILY 90 days 90 caps 1RF R25.1 - Tremor, unspecified primidone Discontinued Reason: Patient no longer taking 50 mg PO BEDTIME 90 days 90 tabs 1RF R25.1 - Tremor, unspecified Coding Level of Care Code Est Pt Level 4 (35408) Complex EM visit Add On G2211 Diagnoses Tremor R25.1 RLS (restless legs syndrome) G25.81 Alcohol use disorder F10.90
== END 2024-07-17 15:59 | disposition home or self-care (01) ==
PROVIDERS: PCP Physician Assistant; Visit Provider Psychiatry & Neurology Neurology
DX: G25.81 Restless legs syndrome (principal); F10.90 Alcohol use, unspecified, uncomplicated
CPT/HCPCS: 99214; G2211

== ENCOUNTER → 2024-07-17 14:57 | Outpatient (BNVA) | payer OTHER, SELFPAY | PROVIDERS: PCP Physician Assistant; Visit Provider Nurse Practitioner Family | DX: R25.1 Tremor, unspecified (principal); G25.81 Restless legs syndrome; F10.90 Alcohol use, unspecified, uncomplicated | CPT/HCPCS: 99212 ==

== ENCOUNTER → 2024-08-17 10:32 | Outpatient (REF) | payer OTHER, SELFPAY | LOC: HO.CARD 10:32 | PROVIDERS: PCP Physician Assistant; Visit Provider Physician Assistant | DX: R00.0 Tachycardia, unspecified (principal); R00.2 Palpitations | CPT/HCPCS: 93242 ==

== ENCOUNTER → 2024-08-17 11:15 | Outpatient (BNV) | payer OTHER, SELFPAY | PROVIDERS: PCP Physician Assistant; Visit Provider Internal Medicine Cardiovascular Disease | DX: R00.0 Tachycardia, unspecified (principal); I49.1 Atrial premature depolarization | CPT/HCPCS: 93244 ==

== ENCOUNTER 2024-09-12 08:27 | Outpatient (AMB) | payer OTHER, SELFPAY ==
[2024-09-12 08:38] VITALS: BP 140/100; PULSE 89; O2SAT 95; BMI 28.7
--- NOTE | 2024-09-12 08:38 | A.OFFPC_ITS ---
Vital Signs 09/12/24 08:38 Height 5 ft 9 in Weight 194 lb 8 oz BMI 28.7 BP 140/100 H Blood Pressure Location Lt brachial Position Sitting Pulse 89 Pulse Source Pulse Oximeter Pulse Oximetry (%) 95 Oxygen Delivery Method Room Air Intake Visit Reasons: Follow Up Senior Hr Business Partner Required: No Accompanied by: Self / Same As Patient Allergies amoxicillin Allergy (Intermediate, Verified 09/12/24 08:52) Hives Penicillins Allergy (Intermediate, Verified 09/12/24 08:52) Hives Medication List - Last Reconciled 09/12/24 by Ankit Elam PA-C cholecalciferol (vitamin D3) 1,250 mcg PO QWEEK 12 days cyanocobalamin (vitamin B-12) 500 mcg PO DAILY 30 days gabapentin 1 cap qam and 2 caps qhs orally 2 times a day; metoprolol succinate ER 12.5 mg (1/2 x 25 mg) PO DAILY 90 days primidone 50 mg PO DAILY [retinyl palmitate 10,000 IU po daily 90 days] riboflavin (vitamin B2) 400 mg PO DAILY 90 days ropinirole 0.5 mg PO DAILY thiamine HCl (vitamin B1) 100 mg PO DAILY 90 days Tobacco use date assessed: 09/12/24 Dental Screening Dental Screen Date: 09/12/24 Did you have a dental visit in the last 12 months?: No Did you have a dental problem in the last 6 months where you did not have access to dental care?: No Was dental information given to patient?: Patient has dentist HPI Follow Up HPI Details Patient is a 29-year-old male here today for follow-up visit. Patient has a past medical history significant for tobacco dependency, essential tremor, generalized anxiety disorder. .. Tremor: The last visit we started propanolol 60 and primidone 50 mg at night though experience side effects, has followed up with Neurology whom it is done workup including MRI of brain though no significant intracranial pathology. Has done EMG though no significant neuropathy noted Has discontinued propranolol though has continued primidone 50. He reports his tremor has been bit better than previous since reducing his cigarette smoking and starting vitamins. Laboratory workup did reveal several vitamin deficiencies He also does have restless leg that he is using ropinirole 0.5 mg at night with good effect. . Alcohol use disorder: He does admit to having some problem with alcohol. He reports over the last 5 days not drinking though he did admit to drinking heavily throughout the whole day season with his family. .. Elevated blood pressure readings: Blood pressure slightly elevated today in office. We have recently restarted beta-pam hopes that this will help his blood pressure as well as his elevated heart rate. Tachycardia: Most recent cardiac event monitor showing sinus tachycardia. We have recently prescribed metoprolol to which she would be starting in near future. .. Tobacco use disorder: Has recently quit smoking over the last 5 days. He does report smoking 10 cigarettes per day. He does understand he needs to quit. Interested in nicotine replacement at this time [facility] Surgical History No pertinent past surgical history Family History Mother Breast cancer Father Heart disease Other Mental health disorder Substance use disorder Social History Housing: House Alcohol intake: current Alcohol intake frequency: a few times a week Alcohol type: beer Patient Tobacco Use Status: Current everyday Tobacco user Tobacco use type: Cigarette Cigarette Packs Per Day: 0.5 Cigarettes Per Day: 10 e-Cigarette/Vaping Use: Never Used Second Hand Smoke Exposure: Yes Substance Use Type: Marijuana service: No Current occupational status: employed 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 1. Little interest or pleasure in doing things: not at all 2. Feeling down, depressed, or hopeless: not at all 3. Trouble falling or staying asleep, or sleeping too much: nearly every day 4. Feeling tired or having little energy: several days 5. Poor appetite or overeating: not at all 6. Feeling bad about yourself - or that you are a failure or have let yourself or your family down: not at all 7. Trouble concentrating on things, such as reading the newspaper or watching television: not at all 8. Moving or speaking so slowly that other people could have noticed. Or the opposite - being so fidgety or restless that you have been moving around a lot more than usual: not at all 9. Thoughts that you would be better off or of hurting yourself in some way: not at all Total score: 4 Depression Screening Interpretation: Positive Depression Screening Follow-up: Existing condition Depression Screening Done: Yes 36881 - PHQ-9 Billing: Yes Source: Developed by Drs. Ciaran Murillo, Renetta Campbell, Lam Clarke and colleagues, with an educational ashtyn from [employer]. Thrive Questionnaire Date Thrive assessed: 09/12/24 I am a: Patient What is your living situation today?: I have a steady place to live Within the past 12 months, did the food you bought not last and you didn't have the money to get more?: Sometimes True Within the past 12 months, did you worry whether your food would run out before you got money to buy more?: Sometimes True Do you have trouble paying for medicines?: No Do you have trouble getting transportation to medical appointments?: No Do you have trouble paying your heating and electricity bill?: No Do you have trouble taking care of your child, family member or friend?: No Do you have trouble with day-to-day activities such as bathing, preparing meals, shopping, managing finances, etc.?: No Are you currently unemployed and looking for a job?: No Are you interested in more education?: No Please select the resources that you would like help with: None Currently or been in a relationship where the following occur: I choose not to answer THRIVE Score: 2 AUDIT C Alcohol Use Questionnaire (AUDIT-C) 1. How often do you have a drink containing alcohol?: 2-3 times a week 2. How many drinks containing alcohol do you have on a typical day when you are drinking?: 5 or 6 3. How often do you have six or more drinks on one occasion?: Weekly Total Score: 8 JB-7 AMB Questionnaire JB-7 Date JB - 7 assessed: 09/12/24 Feeling nervous, anxious, or on edge: 2 = More than half the days Not being able to stop or control worryin = Several days Worrying too much about different things: 0 = Not at all Trouble relaxin = Several days Being so restless that it is hard to sit still: 1 = Several days Becoming easily annoyed or irritable: 1 = Several days Feeling afraid as if something awful might happen: 0 = Not at all Total JB-7 score (0-4 normal; 5-9 mild; 10-14 moderate; 15-21 severe): 6 Source: Developed by Drs. Ciaran Murillo, Renetta Campbell, Lam Clarke and colleagues, with an educational ashtyn from [employer]. JB-7 Assessment Billing JB-7 Assessment Tool: JB-7 Assessment 89429 Review of Systems Const Denies headache(s) Eyes Denies loss of vision ENT Denies vertigo, Denies dizziness, Denies headache(s) and Denies sore throat Card Denies chest pain, Denies leg edema and Denies lightheadedness Resp Denies cough, Denies hemoptysis and Denies wheezing GI Denies abdominal pain, Denies melena, Denies constipation, Denies diarrhea and Denies vomiting Denies dysuria, Denies urinary frequency and Denies urinary urgency Musc Denies arthralgias, Denies joint swelling, Denies numbness and Denies tingling Neuro Denies Abnormal speech present, Denies behavioral changes, Denies vertigo, Denies dizziness, Denies headache(s), Denies loss of vision, Denies memory loss, Denies numbness and Denies tingling Psych Reports anxiety, Denies behavioral changes, Denies depression, Denies memory loss and Denies panic attacks Ezra/Lymph Denies easy bleeding and Denies easy bruising Aller/Immun Denies wheezing Physical exam (Primary Care) Vital Signs: Last Vital Signs Pulse 89 09/12/24 08:38 BP 140/100 H 09/12/24 08:38 Pulse Ox 95 09/12/24 08:38 Oxygen Delivery Method Room Air 09/12/24 08:38 BMI result Body Mass Index 28.7 Tobacco/Smoking Status: Tobacco use Status Tobacco use date assessed 09/12/24 09/12/24 08:44 Patient Tobacco Use Status Current everyday Tobacco 09/12/24 08:44 Tobacco use type Cigarette 09/12/24 08:44 e-Cigarette/Vaping Use Never Used 09/12/24 08:44 PHQ-9: PHQ-9 Score PHQ-9: Total score 4 09/12/24 10:26 Depression Screening Interpretation: Positive Depression Screening Follow-up: Existing condition Thrive Assessment: Date of Thrive Assessment Date Thrive assessed 09/12/24 09/12/24 08:44 Currently or been in a relationship where the following occur: I choose not to answer Const General: healthy appearing, no acute distress, alert and awake Nutritional Appearance: well nourished Orientation/consciousness: oriented to person, oriented to place and oriented to time HENMT Ears: TM's normal bilaterally General nose exam: Normal nasal mucous membranes and turbinates present Eyes Conjunctivae: conjunctivae normal Sclerae: sclerae normal Pupils: Equal, round and reactive pupils present Neck Neck: Yes no lymphadenopathy and Yes no JVD Thyroid: Thyroid normal Carotids: no bruits Resp Effort & Inspection: normal respiratory effort and not tachypneic Auscultation: no crackles, no rales, no rhonchi and no wheezes Cardio Rate: regular rate Rhythm: regular rhythm Heart sounds: no murmurs and normal S1 and S2 GI Palpation (GI): Soft to palpation, nontender, no hepatomegaly and no splenomegaly Auscultation: normal bowel sounds Skin General skin exam: no rashes or lesions noted and dry skin Neuro Other: NOTED HAND TREMOR General: oriented to person, oriented to place and oriented to time Cranial nerves: Yes Equal, round and reactive pupils present Speech: No Abnormal speech present Gait exam (Neuro): Normal gait present Extrem Right upper extremity: full ROM Left upper extremity: full ROM Right lower extremity: full ROM; no edema Left lower extremity: full ROM; no edema Psych Mental Status: mental status grossly normal Speech and movement: Normal speech and movement present Affect: normal affect Attitude: cooperative Thought process: Normal thought process present Coding Level of Care Code Est Pt Level 4 (70407) Diagnoses Tobacco dependence F17.200 Alcohol use disorder F10.90 RLS (restless legs syndrome) G25.81 Tachycardia R00.0 JB (generalized anxiety disorder) F41.1 Tremor R25.1 Additional Codes JB-7 Assessment Billing - JB-7 Assessment Tool: JB-7 Assessment 36351 ([id number]) PHQ-9 - 93581 - PHQ-9 Billing: Yes ([id number]) Assessment & Plan Assessment & Plan (1) Tobacco dependence: Code(s): F17.200 - Nicotine dependence, unspecified, uncomplicated Category: Medical Plan: He does understand he needs to completely quit smoking. He reports stopped smoking over the last 5 days and will try to continue. Not interested in nicotine replacement at this time. (2) Alcohol use disorder: Code(s): F10.90 - Alcohol use, unspecified, uncomplicated Category: Medical Plan: As per HPI patient does admit to having a bit of trouble with alcohol. He has stopped drinking over the last 5 days. Of note did have quite a few vitamin deficiencies to which he is taking supplements and feeling a bit better. Of note noted a macrocytosis and elevated liver enzymes. Advised on reducing his alcohol intake significantly may help him with his overall health. (3) RLS (restless legs syndrome): Code(s): G25.81 - Restless legs syndrome Category: Medical Plan: Continues on ropinirole 0.5 mg with good effect on his leg movement at night. (4) Tachycardia: Code(s): R00.0 - Tachycardia, unspecified Category: Medical Plan: Was noted to have quite sustained tachycardia during his Holter monitor. Will be starting metoprolol in near future. He will be set up with Cardiology for further evaluation. (5) JB (generalized anxiety disorder): Code(s): F41.1 - Generalized anxiety disorder Category: Medical Plan: Patient's JB-7 positive for mild anxiety which has been existing condition for him. He believes his anxieties are directly related to his tremor though this is unclear. We also discussed his alcohol intake which may be related be masking a mental health disorder (6) Tremor: Comment: postural and action tremors - essential tremors, multifactorial Code(s): R25.1 - Tremor, unspecified Category: Medical Plan: Patient reports his tremor has gotten better since starting vitamins and p rimidone. He still has a noted tremor that seems to be an essential tremor. He continues to follow neurology. Intracranial imaging and EMG were normal. Orders: Orders Vitamin B1 09/12/24 R25.1 - Tremor, unspecified Vitamin B12 and Folate 09/12/24 E53.8 - Deficiency of other specified B group vitamins, R79.89 - Other specified abnormal findings of blood chemistry Vitamin D 25-OH Total 09/12/24 R16.1 - Splenomegaly, not elsewhere classified Comprehensive Met. Panel 09/12/24 R74.8 - Abnormal levels of other serum enzymes Medications: Changed From gabapentin 1 cap qam and 2 caps qhs orally 2 times a day; 90 caps 6RF G57.90 - Unspecified mononeuropathy of unspecified lower limb To gabapentin 1 cap qam and 2 caps qhs orally 2 times a day; 30 days 90 caps 0RF G57.90 - Unspecified mononeuropathy of unspecified lower limb
== END 2024-09-12 09:13 | disposition home or self-care (01) ==
PROVIDERS: PCP Physician Assistant; Visit Provider Physician Assistant
DX: R00.0 Tachycardia, unspecified (principal); F17.210 Nicotine dependence, cigarettes, uncomplicated; F10.90 Alcohol use, unspecified, uncomplicated; G25.81 Restless legs syndrome; F41.1 Generalized anxiety disorder

== ENCOUNTER → 2024-09-12 08:27 | Outpatient (BNVA) | payer OTHER, SELFPAY | PROVIDERS: PCP Physician Assistant; Visit Provider Physician Assistant | DX: F10.90 Alcohol use, unspecified, uncomplicated (principal); G25.81 Restless legs syndrome; R00.0 Tachycardia, unspecified; F41.1 Generalized anxiety disorder; F17.200 Nicotine dependence, unspecified, uncomplicated; Z71.6 Tobacco abuse counseling | CPT/HCPCS: 96127; 99212 ==

== ENCOUNTER 2024-09-20 09:33 | Outpatient (AMB) | payer OTHER, SELFPAY ==
[2024-09-20 10:02] VITALS: BP 138/96; PULSE 106; O2SAT 96; BMI 30.9
--- NOTE | 2024-09-20 10:02 | MHC.OFFVIS ---
Vital Signs 09/20/24 10:02 Height 5 ft 9 in Weight 209 lb BMI 30.9 BP 138/96 H Blood Pressure Location Rt brachial Position Sitting Pulse 106 H Pulse Source Pulse Oximeter Pulse Oximetry (%) 96 Oxygen Delivery Method Room Air Intake Visit Reasons: 6 month F/U Allergies amoxicillin Allergy (Intermediate, Verified 09/20/24 10:05) Hives Penicillins Allergy (Intermediate, Verified 09/20/24 10:05) Hives Medication List - Last Reconciled 09/20/24 by GUERLINE Vasquez cholecalciferol (vitamin D3) 1,250 mcg PO QWEEK 12 days cyanocobalamin (vitamin B-12) 500 mcg PO DAILY 30 days gabapentin 1 cap qam and 2 caps qhs orally 2 times a day; 30 days metoprolol succinate ER 12.5 mg (1/2 x 25 mg) PO DAILY 90 days primidone 50 mg PO DAILY [retinyl palmitate 10,000 IU po daily 90 days] riboflavin (vitamin B2) 400 mg PO DAILY 90 days ropinirole 0.5 mg PO DAILY thiamine HCl (vitamin B1) 100 mg PO DAILY 90 days HPI Comments Details: 29-yr-old male presents for f/u visit of BLE paresthesias and tremor. Since his last visit, his lab work showed elevated HGB, MCV, ferritin, LFTs, and ceruloplasmin 35 H. Low normal B12 300. And vitamin A, B1 B2, D, folate deficiency. Since, patient has started on a vitamin a, thiamine, riboflavin, D, folate and B12 supplement. He reports he is feeling better since starting the supplements. He is trying to drink less alcohol. He does use tobacco and marijuana, not daily. He does not vape at all. He continues to have painful tingling/stabbing in bilateral feet. He does notices during the day and night, however it is worse at night when he is trying to sleep. States gabapentin does help this, however his pharmacy has not refilled this for him in a couple of weeks. He denies symptoms or history of restlessness, urgency to move, creepy crawly sensation. He has been compliant with ropinirole, however he was not sure why he was taking this and wonders if he can stop it. His tremors are mild, however he can become embarrassed because of his tremors especially if he has to write him for an somebody else. States he has been taking primidone. And was recently started on metoprolol. Pt could not fully complete 02/08/2024 brain and c-spine MRI- however no significant findings noted. 01/18/2024 BLE EMG/NCS- was normal. 07/16/24 16:34 WBC 10.3 RBC 4.59 L Hgb 18.3 H Hct 51.9 MCV 113.1 H MCH 39.9 H MCHC 35.3 RDW 13.8 Plt Count 314 D MPV 9.5 Sodium 137 Potassium 3.8 Chloride 107 Carbon Dioxide 21 L Anion Gap 13 BUN 6 L Creatinine 0.74 Estimated GFR > 60 Random Glucose 135 H Estimat Average Glucose 91 Hemoglobin A1c % 4.8 Calcium 9.2 Iron 118 TIBC 387 % Saturation 30 Unsat Iron Binding 269 Ferritin 393 H Total Bilirubin 1.1 H AST 104 H ALT 110 H Alkaline Phosphatase 75 Total Creatine Kinase 20 L Total Protein 7.3 Albumin 4.3 Ceruloplasmin 35 H Vitamin A 14 L Vitamin B1 <6 L Vitamin B2 <5.0 L Pantothenic Acid <=40 Vitamin B12 300 25-OH Vitamin D Total 17 L 25-Hydroxy Vitamin D2 <4 Nicotinic Acid <20 25-Hydroxy Vitamin D3 17 Vitamin B6 8.2 Alpha-Tocopherol Vit E 5.9 B- and G-Tocopherol <1.0 Vitamin K1 238 Folate 3.4 L TSH 1.51 Rheumatoid Factor < 13.0 MARY Screen NEGATIVE PFSH Surgical History No pertinent past surgical history Family History Mother Breast cancer Father Heart disease Other Mental health disorder Substance use disorder Social History Housing: House Alcohol intake: current Alcohol intake frequency: a few times a week Alcohol type: beer Patient Tobacco Use Status: Current everyday Tobacco user Tobacco use type: Cigarette Cigarette Packs Per Day: 0.5 Cigarettes Per Day: 10 e-Cigarette/Vaping Use: Never Used Second Hand Smoke Exposure: Yes Substance Use Type: Marijuana service: No Current occupational status: employed 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 Expression: Intact Voice: Intact Tremor: BUE postural tremor Gait: Stands easily, slight antalgic but steady gait, Psych: Pleasant affect Assessment & Plan Assessment & Plan (1) Tremor: Comment: postural and action tremors - essential tremors, multifactorial Code(s): R25.1 - Tremor, unspecified Category: Medical (2) Low vitamin B12 level: Code(s): R79.89 - Other specified abnormal findings of blood chemistry Category: Medical (3) Vitamin A deficiency: Code(s): E50.9 - Vitamin A deficiency, unspecified Category: Medical (4) Vitamin B1 deficiency: Code(s): E51.9 - Thiamine deficiency, unspecified Category: Medical (5) Folate deficiency: Code(s): E53.8 - Deficiency of other specified B group vitamins Category: Medical Plan Reviewed interval lab work- notable for elevated hemoglobin, ferritin, LFTs, ceruloplasmin. And vitamin a, B1, B2, D, folate, B12 deficiencies. Continue on vitamin-A, thiamine, riboflavin, D, folate, B12 supplementation. Recheck fasting labs in 3 months We will also request comprehensive ophthalmology consult. Patient may continue primidone and metoprolol. Refilled gabapentin 300 mg q.a.m. and 600 mg q.h.s. I have advised patient to stop ropinirole, as this can cause compulsive behavior and patient denies clear symptoms of RLS. Discussed that if patient continues to struggle with alcohol cessation, we can refer him to [facility] [place] is out-patient comprehensive Care Clinic here. ? Reviewed simple BLE stretching and exercises he can do at home to reduce bilateral foot pain. Patient may benefit from using a more cushion shoe such as Hooka style cushion sneaker. We will share information on adaptive strategies from the essential trem[employer]. f/u in 6 months or sooner prn. Orders: Orders Methylmalonic Acid Today E50.9 - Vitamin A deficiency, unspecified, E51.9 - Thiamine deficiency, unspecified, E53.8 - Deficiency of other specified B group vitamins, R25.1 - Tremor, unspecified, R74.8 - Abnormal levels of other serum enzymes, R79.89 - Other specified abnormal findings of blood chemistry Homocysteine Today E50.9 - Vitamin A deficiency, unspecified, E51.9 - Thiamine deficiency, unspecified, E53.8 - Deficiency of other specified B group vitamins, R25.1 - Tremor, unspecified, R74.8 - Abnormal levels of other serum enzymes, R79.89 - Other specified abnormal findings of blood chemistry Vitamin A Today E50.9 - Vitamin A deficiency, unspecified, E51.9 - Thiamine deficiency, unspecified, E53.8 - Deficiency of other specified B group vitamins, R25.1 - Tremor, unspecified, R74.8 - Abnormal levels of other serum enzymes, R79.89 - Other specified abnormal findings of blood chemistry Ceruloplasmin Today R25.1 - Tremor, unspecified, R74.8 - Abnormal levels of other serum enzymes Copper, serum Today E50.9 - Vitamin A deficiency, unspecified, E51.9 - Thiamine deficiency, unspecified, E53.8 - Deficiency of other specified B group vitamins, R25.1 - Tremor, unspecified, R74.8 - Abnormal levels of other serum enzymes, R79.89 - Other specified abnormal findings of blood chemistry Referrals Ophthalmology Referral R25.1 - Tremor, unspecified, R74.8 - Abnormal levels of other serum enzymes Medications: Changed From gabapentin 1 cap qam and 2 caps qhs orally 2 times a day; 30 days 90 caps 0RF G57.90 - Unspecified mononeuropathy of unspecified lower limb To gabapentin 1 cap qam and 2 caps qhs orally .; 30 days 90 caps 2RF G57.90 - Unspecified mononeuropathy of unspecified lower limb Coding Level of Care Code Est Pt Level 4 (75984) Complex EM visit Add On G2211 Diagnoses Tremor R25.1 Low vitamin B12 level R79.89 Vitamin A deficiency E50.9 Vitamin B1 deficiency E51.9 Folate deficiency E53.8
== END 2024-09-20 10:51 | disposition home or self-care (01) ==
PROVIDERS: PCP Physician Assistant; Visit Provider Nurse Practitioner Family
DX: R25.1 Tremor, unspecified (principal); R79.89 Other specified abnormal findings of blood chemistry; E50.9 Vitamin A deficiency, unspecified; E51.9 Thiamine deficiency, unspecified; E53.8 Deficiency of other specified B group vitamins
CPT/HCPCS: 99214; G2211

== ENCOUNTER → 2024-09-20 09:33 | Outpatient (BNVA) | payer OTHER, SELFPAY | PROVIDERS: PCP Physician Assistant; Visit Provider Nurse Practitioner Family | DX: G57.90 Unspecified mononeuropathy of unspecified lower limb (principal); R25.1 Tremor, unspecified; R79.89 Other specified abnormal findings of blood chemistry; E50.9 Vitamin A deficiency, unspecified; E51.9 Thiamine deficiency, unspecified; E53.8 Deficiency of other specified B group vitamins | CPT/HCPCS: 99212 ==

== ENCOUNTER 2024-12-05 10:56 | Outpatient (AMB) | payer OTHER, SELFPAY ==
--- NOTE | 2024-12-05 10:59 | MHC.OFFVIS ---
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[place]/ tachycardia/ hole in heart [employer] Required: No Accompanied by: Significant Other Allergies amoxicillin Allergy (Intermediate, Verified 09/20/24 10:05) Hives Penicillins Allergy (Intermediate, Verified 09/20/24 10:05) Hives Medication List - Last Reconciled 12/05/24 by Pa Smith MD cholecalciferol (vitamin D3) 1,250 mcg PO QWEEK 12 days cyanocobalamin (vitamin B-12) 500 mcg PO DAILY 30 days gabapentin 1 cap qam and 2 caps qhs orally .; 30 days metoprolol succinate ER 12.5 mg (1/2 x 25 mg) PO DAILY 90 days primidone 50 mg PO DAILY [retinyl palmitate 10,000 IU po daily 90 days] riboflavin (vitamin B2) 400 mg PO DAILY 90 days thiamine HCl (vitamin B1) 100 mg PO DAILY 90 days HPI Comments Details: Nicholas is here for cardiac consultation. Apparently, he was seen at [place] [facility] around 2008. At around that time, he has had a syncopal episode which led to further evaluation. It appears that he probably had a transesophageal echocardiogram was told to have ' hole in the heart'. Possibly patent foramina ovale or ASD but not very clear. However, a subsequent echocardiogram in 2020 at [facility] does not show that. He has had issues with tremors without any definitive diagnosis. Frequent alcohol use and he has about 2 drinks daily. He underwent recent Holter monitor that showed sinus tachycardia as well as SVT. Beta-blockers are in his list but he is not clear if he actually takes some or not. Prior to that, had taken propranolol but not anymore. With regard to symptoms, no clear chest pains or shortness of breath suggest cardiac etiology. He does get some palpitations at different times. [facility] Surgical History No pertinent past surgical history Family History Mother Breast cancer Father Heart disease Other Mental health disorder Substance use disorder Social History (Reviewed 12/05/24 @ 11:04 by MINDA Smith Housing: House Alcohol intake: current Alcohol intake frequency: a few times a week Alcohol type: beer Patient Tobacco Use Status: Current everyday Tobacco user Tobacco use type: Cigarette Cigarette Packs Per Day: 0.5 Cigarettes Per Day: 10 e-Cigarette/Vaping Use: Never Used Second Hand Smoke Exposure: Yes Substance Use Type: Marijuana service: No Current occupational status: employed 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 Cognitive needs: No Hearing needs: No Vision needs: Yes (glasses) Review of Systems Const Denies chills, Denies daytime sleepiness, Denies fatigue, Denies fever(s), Denies poor appetite, Denies snoring, Denies stops breathing during sleep, Denies weakness, Denies weight gain and Denies weight loss Eyes Denies loss of vision ENT Denies dizziness and Denies hearing loss Card Denies chest pain, Denies irregular heart rhythm, Denies claudication, Denies leg edema, Denies lightheadedness, Denies palpitations, Denies dyspnea on exertion and Denies orthopnea Resp Denies cough, Denies excessive phlegm production, Denies dyspnea on exertion, Denies snoring and Denies wheezing GI Denies abdominal pain, Denies hematochezia, Denies change in bowel habits, Denies nausea and Denies vomiting Denies dysuria and Denies urinary frequency Musc Denies arthralgias, Denies muscle weakness, Denies numbness and Denies other Skin/Breast Denies nail changes and Denies rash Neuro Denies Abnormal speech present, Denies dizziness, Denies loss of vision, Denies memory loss, Denies numbness and Denies weakness Psych Denies depression and Denies memory loss Endo Denies fatigue and Denies palpitations Ezra/Lymph Denies easy bruising Aller/Immun Denies wheezing Physical Exam Vital Signs: Last Vital Signs Pulse 86 12/05/24 11:00 BP 100/70 12/05/24 11:00 BMI result Body Mass Index 30.8 Const General: comfortable and no acute distress Orientation/consciousness: patient oriented x3 HEENT Other: Unremarkable Head: Yes normal to inspection Neck Neck: Yes normal visual inspection Chest Chest palpation & inspection: normal inspection of the chest Resp Auscultation: clear to auscultation bilaterally Cardio Palpation: normal PMI Heart sounds: S1 normal heart sound present, S2 normal heart sound present, no gallops, no murmurs and no rubs GI Palpation (GI): Soft to palpation Back/Spine/Pelvis Other: unremarkable Skin General skin exam: no rashes or lesions noted Neuro General: patient oriented x3 Speech: No Abnormal speech present Extrem General: Yes normal to inspection Psych Mental Status: mental status grossly normal Office Procedures EKG Details: EKG with underlying sinus rhythm at 86/Min; no significant ST-T changes and otherwise unremarkable[place] [id number], Complete Assessment & Plan Assessment & Plan (1) Sinus tachycardia: Code(s): R00.0 - Tachycardia, unspecified Category: Medical (2) SVT (supraventricular tachycardia): Code(s): I47.10 - Supraventricular tachycardia, unspecified Category: Medical (3) Alcohol use disorder: Code(s): F10.90 - Alcohol use, unspecified, uncomplicated Category: Medical Plan Holter monitor report as well as data reviewed. Essentially, he has underlying sinus rhythm but average rate is quite high at 100/Min. Around 50% of the time, he has having sinus tachycardia. Rare supraventricular ectopy/ventricular ectopy. Some of these tachycardic episodes are with inverted P-waves and hence most likely non sinus mechanism, could be a low atrial origin. Etiology with the sinus as well as atrial tachycardia could be alcohol excess. We discussed about that today. Main recommendation would be to cut back on alcohol use and see if that improves the tachyarrhythmia/palpitations. He is listed to be on a small dose of metoprolol but he is not clear if he is actually taking it or not. Hence he will go home on check on that. With regard to the question of hole in the heart, we will repeat an echocardiogram to include a bubble study to evaluate for PFO. Would also like to look for any cardiomyopathy related to alcohol. We will need to request the prior RAVINDER from [facility]-around 2008. Follow-up will be arranged. Orders: Orders CA echo transthoracic complete Today I47.10 - Supraventricular tachycardia, unspecified Coding Level of Care Code New Pt Level 4 (72991) Diagnoses Sinus tachycardia R00.0 SVT (supraventricular tachycardia) I47.10 Alcohol use disorder F10.90 CPT Codes EKG - CPT: 41521-[id number], Complete ([id number])
[2024-12-05 11:00] VITALS: BP 100/70; PULSE 86; BMI 30.8
--- OUTSIDE RECORDS SUMMARY | 2024-12-05 12:54 | XMS_ITS | Clinical Summary ---
Author Organization [facility] Address [address] [place] [address] Care Team Providers Care Hand Pattern Marker Name Role Phone Unavailable Primary Care Provider Unavailabl e Social History Tobacco Use Types Packs/Day Years Used Date Smoking Tobacco: Never Assessed Sex and Gender Information Value Date Recorded Sex Assigned at Not on file Gender Identity Not on file Sexual Orientation Not on file Plan of Treatment Not on file
--- OUTSIDE RECORDS SUMMARY | 2024-12-05 12:54 | XMS_ITS | Clinical Summary ---
Author Organization [facility] Address [address] [place] [address] Phone Care Team Providers Care Senior Accounting Clerk Name Role Phone Physician, No Pcp Primary Care Provider Unavaila ble Allergies Active Allergy Reactions Criticality Noted Date Comments Amoxicillin 07/10/2024 Penicillins 07/10/2024 Medical History Medical History Date Comments Hypertension Social History Tobacco Use Types Packs/Day Years Used Date Smoking Tobacco: Never Assessed Sex and Gender Information Value Date Recorded Sex Assigned at Male 07/11/2024 9:27 AM EST Legal Sex Male 4:29 AM EST Gender Identity Male 07/11/2024 9:27 AM EST Sexual Orientation Straight 07/11/2024 9: 27 AM EST Obstetrics History Last Filed Vital Signs Vital Sign Reading Time Taken Comments Blood Pressure 127/106 07/10/2024 4:33 AM EST Pulse 106 07/10/2024 4:33 AM EST Temperature 36.7 ??C (98.1 ??F) 07/10/2024 4:33 AM ES T Respiratory Rate 16 07/10/2024 4:33 AM EST Oxygen Saturation 96% 07/10/2024 4:33 AM EST Inhaled Oxygen Concentration - - Weight - - Height - - Body Mass Index - - Plan of Treatment Health Maintenance Due Date Last Done Comments DTaP,Tdap,and Td Vaccines (1 - Tdap) 2012 Hepatitis B Vaccines (1 of 3 - 19+ 3-dose series) 2012 COVID-19 Vaccine (2023-2 5 season) 2024 Influenza Vaccine (#1) 2024 Depression Screening 07/10/2024 HIV Screening 07/10/2024 Hepatitis C Screening 07/10/2024 Social Influencers of Health Screening 07/10/2024 HIB Vaccines Aged Out No longer eligi ble based on patient's age to complete this topic HPV Vaccines Aged Out No longer eligi ble based on patient's age to complete this topic Hepatitis A Vaccines Aged Out No long er eligible based on patient's age to complete this topic IPV Vaccines Aged Out No longer eligi ble based on patient's age to complete this topic MMR Vaccines Aged Out No longer eligi ble based on patient's age to complete this topic Meningococcal ACWY Vaccine Aged Out N o longer eligible based on patient's age to complete this topic Meningococcal B Vaccine Aged Out No l onger eligible based on patient's age to complete this topic Pneumococcal Vaccine: Pediat rics (0 to 5 Years) and At-Risk Patients (6 to 64 Years) Aged Out No longer eligible b ased on patient's age to complete this topic RSV Immunization Patients Un keshav 20 months Aged Out No longer eligible b ased on patient's age to complete this topic Varicella Vaccines Aged Out No longer eligible based on patient's age to complete this topic Insurance [facility] Care Teams Senior Accounting Clerk Relationship Specialty Start Date End Date Physician, No Pcp PCP - General 07/11/24
== END 2024-12-05 11:41 | disposition home or self-care (01) ==
LOC: HO.HCS 10:57
PROVIDERS: PCP Physician Assistant; Visit Provider Internal Medicine
DX: R00.0 Tachycardia, unspecified (principal); I47.10 Supraventricular tachycardia, unspecified; F10.90 Alcohol use, unspecified, uncomplicated
CPT/HCPCS: 93010; 99204

== ENCOUNTER → 2024-12-05 10:56 | Outpatient (BNVA) | payer OTHER, SELFPAY | PROVIDERS: PCP Physician Assistant; Visit Provider Internal Medicine | DX: I47.10 Supraventricular tachycardia, unspecified (principal); F10.90 Alcohol use, unspecified, uncomplicated | CPT/HCPCS: 93005; 99202 ==

== ENCOUNTER 2025-01-16 09:08 | Outpatient (AMB) | payer OTHER, SELFPAY ==
[2025-01-16 09:11] VITALS: BP 120/78; PULSE 105; TEMP 36.1; O2SAT 94; BMI 31.2
--- NOTE | 2025-01-16 09:11 | MHC.PC.OV ---
Vital Signs 01/16/25 09:11 Height 5 ft 9 in Weight 211 lb BMI 31.2 BP 120/78 Blood Pressure Location Lt brachial Position Sitting Pulse 105 H Pulse Source Pulse Oximeter Temp 97.0 F Temp Source Temporal Artery Scan Pulse Oximetry (%) 94 Oxygen Delivery Method Room Air Intake Visit Reasons: f/u tremor/ HTN [facility] Director Required: No Accompanied by: Self / Same As Patient Allergies amoxicillin Allergy (Intermediate, Verified 01/16/25 09:22) Hives Penicillins Allergy (Intermediate, Verified 01/16/25 09:22) Hives Medication List - Last Reconciled 01/16/25 by Ankit Elam PA-C cholecalciferol (vitamin D3) 1,250 mcg PO QWEEK 12 days cyanocobalamin (vitamin B-12) 500 mcg PO DAILY 30 days gabapentin 1 cap qam and 2 caps qhs orally .; 30 days propranolol ER 60 mg PO DAILY [retinyl palmitate 10,000 IU po daily 90 days] riboflavin (vitamin B2) 400 mg PO DAILY 90 days thiamine HCl (vitamin B1) 100 mg PO DAILY 90 days Tobacco use date assessed: 01/16/25 Dental Screening Dental Screen Date: 01/16/25 Did you have a dental visit in the last 12 months?: Yes Did you have a dental problem in the last 6 months where you did not have access to dental care?: No Was dental information given to patient?: Patient has dentist HPI f/u tremor/ HTN HPI Details Patient is a 29-year-old male here today for follow-up visit. Patient has a past medical history significant for tobacco dependency, essential tremor, generalized anxiety disorder. .. Tremor: Patient reports persistent essential tremor affecting daily activities, including shaving and writing. He is currently managed with propranolol and gabapentin, the latter providing some relief for sleep and anxiety though there is a concern about dependence. Previous attempts with primidone were discontinued due to mood-altering side effects.. He has been found to have vitamin B1 and B2 deficiency is the which has been supplemented with oral pills. He is considering applying for disability as he has not been able to work a steady job due to his tremor. . Alcohol use disorder: Nicholas Reports drinking much less alcohol than he was before though still has a tremor issue. .. Elevated blood pressure readings: Blood pressure slightly elevated today in office. We have recently restarted beta-pam hopes that this will help his blood pressure as well as his elevated heart rate. Tachycardia: Patient continues on propranolol, as previously prescribed metoprolol for the tachycardia. Has recently followed up with Cardiology about his Holter monitor which was essentially normal besides in his tachycardia. He is due for an echocardiogram for further evaluation. [facility] Surgical History No pertinent past surgical history Family History Mother Breast cancer Father Heart disease Other Mental health disorder Substance use disorder Social History Housing: House Alcohol intake: current Alcohol intake frequency: a few times a week Alcohol type: beer Patient Tobacco Use Status: Current everyday Tobacco user Tobacco use type: Cigarette Cigarette Packs Per Day: 0.5 Cigarettes Per Day: 10 e-Cigarette/Vaping Use: Never Used Second Hand Smoke Exposure: Yes Substance Use Type: Marijuana service: No Current occupational status: employed 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 1. Little interest or pleasure in doing things: several days 2. Feeling down, depressed, or hopeless: several days 3. Trouble falling or staying asleep, or sleeping too much: several days 4. Feeling tired or having little energy: several days 5. Poor appetite or overeating: not at all 6. Feeling bad about yourself - or that you are a failure or have let yourself or your family down: several days 7. Trouble concentrating on things, such as reading the newspaper or watching television: several days 8. Moving or speaking so slowly that other people could have noticed. Or the opposite - being so fidgety or restless that you have been moving around a lot more than usual: several days 9. Thoughts that you would be better off or of hurting yourself in some way: not at all Total score: 7 Depression Screening Interpretation: Positive Depression Screening Follow-up: Existing condition and In treatment Depression Screening Done: Yes 26150 - PHQ-9 Billing: Yes Source: Developed by Drs. Ciaran Murillo, Renetta Campbell, Lam Clarke and colleagues, with an educational ashtyn from [employer]. Thrive Questionnaire Date Thrive assessed: 01/16/25 I am a: Patient What is your living situation today?: I do not have a steady places to live I am temporarily staying with others Within the past 12 months, did the food you bought not last and you didn't have the money to get more?: Sometimes True Within the past 12 months, did you worry whether your food would run out before you got money to buy more?: Sometimes True Do you have trouble paying for medicines?: No Do you have trouble getting transportation to medical appointments?: Yes Do you have trouble paying your heating and electricity bill?: No Do you have trouble taking care of your child, family member or friend?: No Do you have trouble with day-to-day activities such as bathing, preparing meals, shopping, managing finances, etc.?: Yes Are you currently unemployed and looking for a job?: Yes Are you interested in more education?: No Please select the resources that you would like help with: Daily support Currently or been in a relationship where the following occur: Controlled Financially THRIVE Score: 5 AUDIT C Alcohol Use Questionnaire (AUDIT-C) 1. How often do you have a drink containing alcohol?: 4 or more times a week 2. How many drinks containing alcohol do you have on a typical day when you are drinking?: 3 or 4 3. How often do you have six or more drinks on one occasion?: Weekly Total Score: 8 Score Reviewed/Action Taken: Yes JB-7 AMB Questionnaire JB-7 Date JB - 7 assessed: 01/16/25 Feeling nervous, anxious, or on edge: 1 = Several days Not being able to stop or control worryin = Not at all Worrying too much about different things: 0 = Not at all Trouble relaxin = Not at all Being so restless that it is hard to sit still: 0 = Not at all Becoming easily annoyed or irritable: 0 = Not at all Feeling afraid as if something awful might happen: 0 = Not at all Total JB-7 score (0-4 normal; 5-9 mild; 10-14 moderate; 15-21 severe): 1 Source: Developed by Drs. Ciaran Murillo, Renetta Campbell, Lam Clarke and colleagues, with an educational ashtyn from [employer]. JB-7 Assessment Billing JB-7 Assessment Tool: JB-7 Assessment 54263 Review of Systems Const Denies headache(s) Eyes Denies loss of vision ENT Denies vertigo, Denies dizziness, Denies headache(s) and Denies sore throat Card Denies chest pain, Denies leg edema and Denies lightheadedness Resp Denies cough, Denies hemoptysis and Denies wheezing GI Denies abdominal pain, Denies melena, Denies constipation, Denies diarrhea and Denies vomiting Denies dysuria, Denies urinary frequency and Denies urinary urgency Musc Denies arthralgias, Denies joint swelling, Denies numbness and Denies tingling Neuro Denies Abnormal speech present, Denies behavioral changes, Denies vertigo, Denies dizziness, Denies headache(s), Denies loss of vision, Denies memory loss, Denies numbness and Denies tingling Psych Denies anxiety, Denies behavioral changes, Denies depression, Denies memory loss and Denies panic attacks Ezra/Lymph Denies easy bleeding and Denies easy bruising Aller/Immun Denies wheezing Physical exam (Primary Care) Vital Signs: Last Vital Signs Temp 97.0 F 01/16/25 09:11 Pulse 105 H 01/16/25 09:11 BP 120/78 01/16/25 09:11 Pulse Ox 94 01/16/25 09:11 Oxygen Delivery Method Room Air 01/16/25 09:11 BMI result Body Mass Index 31.2 Tobacco/Smoking Status: Tobacco use Status Tobacco use date assessed 01/16/25 01/16/25 09:13 Patient Tobacco Use Status Current everyday Tobacco 01/16/25 09:13 Tobacco use type Cigarette 01/16/25 09:13 e-Cigarette/Vaping Use Never Used 01/16/25 09:13 PHQ-9: PHQ-9 Score PHQ-9: Total score 7 01/16/25 09:13 Depression Screening Interpretation: Positive Depression Screening Follow-up: Existing condition and In treatment Thrive Assessment: Date of Thrive Assessment Date Thrive assessed 01/16/25 01/16/25 09:13 Currently or been in a relationship where the following occur: Controlled Financially Const General: healthy appearing, no acute distress, alert and awake Nutritional Appearance: well nourished Orientation/consciousness: oriented to person, oriented to place and oriented to time HENMT Ears: TM's normal bilaterally General nose exam: Normal nasal mucous membranes and turbinates present Eyes Conjunctivae: conjunctivae normal Sclerae: sclerae normal Pupils: Equal, round and reactive pupils present Neck Neck: Yes no lymphadenopathy and Yes no JVD Thyroid: Thyroid normal Carotids: no bruits Resp Effort & Inspection: normal respiratory effort and not tachypneic Auscultation: no crackles, no rales, no rhonchi and no wheezes Cardio Rate: regular rate Rhythm: regular rhythm Heart sounds: no murmurs and normal S1 and S2 GI Palpation (GI): Soft to palpation, nontender, no hepatomegaly and no splenomegaly Auscultation: normal bowel sounds Skin General skin exam: no rashes or lesions noted and dry skin Neuro General: oriented to person, oriented to place and oriented to time Cranial nerves: Yes Equal, round and reactive pupils present Speech: No Abnormal speech present Gait exam (Neuro): Normal gait present Motor exam (neuro): no tremor noted Extrem Right upper extremity: full ROM Left upper extremity: full ROM Right lower extremity: full ROM; no edema Left lower extremity: full ROM; no edema Psych Mental Status: mental status grossly normal Speech and movement: Normal speech and movement present Affect: normal affect Attitude: cooperative Thought process: Normal thought process present Coding Level of Care Code Est Pt Level 4 (72941) Diagnoses Tremor R25.1 SVT (supraventricular tachycardia) I47.10 Elevated liver enzymes R74.8 Vitamin B1 deficiency E51.9 Additional Codes JB-7 Assessment Billing - JB-7 Assessment Tool: JB-7 Assessment 88626 ([id number]) PHQ-9 - 66061 - PHQ-9 Billing: Yes ([id number]) Assessment & Plan Assessment & Plan (1) Tremor: Comment: postural and action tremors - essential tremors, multifactorial Code(s): R25.1 - Tremor, unspecified Category: Medical Plan: Managed with propranolol and gabapentin; exploring occupational therapy for daily task strategies. Patient is responding to medication but cautious about gabapentin dependency. Again patient considering applying for disability as he has not been able to keep a consistent job. We did discuss the possibility of trying FMLA on intermittent basis due to his tremor.. He has financial issues at this time. (2) SVT (supraventricular tachycardia): Code(s): I47.10 - Supraventricular tachycardia, unspecified Category: Medical Plan: As per HPI patient did follow up with Cardiology and reviewed his Holter monitor which essentially was stable. He is due for echocardiogram for further cardiac workup. Tachycardia thought to be due to his excessive alcohol intake. (3) Elevated liver enzymes: Code(s): R74.8 - Abnormal levels of other serum enzymes Category: Medical Plan: Continues to have fairly elevated liver enzymes. Has upcoming appointment with Gastroenterology today. Did have an ultrasound of his abdomen that did show signs consistent with fatty liver and mild splenomegaly. (4) Vitamin B1 deficiency: Code(s): E51.9 - Thiamine deficiency, unspecified Category: Medical Plan: He is currently supplementing B vitamins Will recheck to ensure stable. Orders: Orders OT Evaluation and Treatment Today R25.1 - Tremor, unspecified Ethanol Today F10.90 - Alcohol use, unspecified, uncomplicated
--- OUTSIDE RECORDS SUMMARY | 2025-01-16 10:20 | XMS_ITS | Clinical Summary ---
Author Organization [facility] Address [address] [place] [address] Care Team Providers Care Test Carrier Name Role Phone Unavailable Primary Care Provider Unavailabl e Social History Tobacco Use Types Packs/Day Years Used Date Smoking Tobacco: Never Assessed Sex and Gender Information Value Date Recorded Sex Assigned at Not on file Gender Identity Not on file Sexual Orientation Not on file Plan of Treatment Not on file
--- OUTSIDE RECORDS SUMMARY | 2025-01-16 10:20 | XMS_ITS | Clinical Summary ---
Author Organization [facility] Address [address] [place] [address] Phone Care Team Providers Care Bulk Station Operator Name Role Phone Physician, No Pcp Primary [...] 2012 COVID-19 Vaccine (2023-2 5 season) 2024 Depression Screening 07/10/2024 HIV Screening 07/10/2024 Hepatitis C Screening 07/10/2024 Social Influencers of Health Screening 07/10/2024 Influenza Vaccine (Season Ended) 2025 HIB Vaccines Aged Out No longer eligi [...] patient's age to complete this topic Insurance [facility] [employer] Care Teams Bulk Station Operator Relationship Specialty Start Date End Date Physician, No Pcp PCP - General 07/11/24
== END 2025-01-16 09:48 | disposition home or self-care (01) ==
LOC: HO.HMCH 09:08
PROVIDERS: PCP Physician Assistant; Visit Provider Physician Assistant
DX: R25.1 Tremor, unspecified (principal); I47.10 Supraventricular tachycardia, unspecified; R74.8 Abnormal levels of other serum enzymes; E51.9 Thiamine deficiency, unspecified

== ENCOUNTER → 2025-01-16 09:08 | Outpatient (BNVA) | payer OTHER, SELFPAY | PROVIDERS: PCP Physician Assistant; Visit Provider Physician Assistant | DX: D75.1 Secondary polycythemia (principal); K76.0 Fatty (change of) liver, not elsewhere classified; R16.1 Splenomegaly, not elsewhere classified; F10.90 Alcohol use, unspecified, uncomplicated; E66.09 Other obesity due to excess calories; F17.210 Nicotine dependence, cigarettes, uncomplicated; G25.0 Essential tremor; F41.1 Generalized anxiety disorder; R03.0 Elevated blood-pressure reading, without diagnosis of hypertension; I47.10 Supraventricular tachycardia, unspecified; R74.8 Abnormal levels of other serum enzymes; E51.9 Thiamine deficiency, unspecified; Z68.32 Body mass index [BMI] 32.0-32.9, adult | CPT/HCPCS: 96127; 99202; 99212 ==

== ENCOUNTER 2025-01-16 15:04 | Outpatient (AMB) | payer OTHER, SELFPAY ==
--- OUTSIDE RECORDS SUMMARY | 2025-01-16 15:08 | XMS_ITS | Clinical Summary ---
Author Organization [facility] Address [address] [place] [address] Phone Care Team Providers Care Assembler Bonding Name Role Phone Physician, No Pcp Primary [...] patient's age to complete this topic Insurance [facility] Care Teams Assembler Bonding Relationship Specialty Start Date End Date Physician, No Pcp PCP - General 07/11/24
--- OUTSIDE RECORDS SUMMARY | 2025-01-16 15:08 | XMS_ITS | Clinical Summary ---
Author Organization [facility] Address [address] [place] [address] Care Team Providers Care Photo Mask Cleaner Name Role Phone Unavailable Primary Care Provider Unavailabl e Social History Tobacco Use Types Packs/Day Years Used Date Smoking Tobacco: Never Assessed Sex and Gender Information Value Date Recorded Sex Assigned at Not on file Gender Identity Not on file Sexual Orientation Not on file Plan of Treatment Not on file
--- NOTE | 2025-01-16 15:14 | MHC.OFFVIS ---
Vital Signs 01/16/25 15:22 Height 5 ft 9 in Weight 211 lb BMI 31.2 BP 114/76 Blood Pressure Location Lt brachial Position Sitting Pulse 88 Pulse Oximetry (%) 98 Oxygen Delivery Method Room Air Intake Visit Reasons: Fatty liver/abnormal level of serum enzymes Intake Note: Patient new consult for fatty liver/abnormal level of serum enzymes. Patient denies any GI issues for today visit. Interactive Media Marketing Director Required: No Accompanied by: Self / Same As Patient Allergies amoxicillin Allergy (Intermediate, Verified 01/16/25 15:14) Hives Penicillins Allergy (Intermediate, Verified 01/16/25 15:14) Hives HPI Comments Details: 29 y.o M with PMH of etOH use disorder, tobacco use disorder, erythrocytosis who is here for elevated LFTs. Reports no abd pain, N,V,D. Has had elevated LFTs since 2022. Reports drinking 2 sleeves of nips in one sitting. No fam hx of liver disease. BMI 31. No DM. Reports cholesterol was yolanda was but unable to locate in his chart. US Abd with hepatosplenomegaly. Of note, H/H noted to be high as well. No hx of NOVA that pt reports. Has cut down cigarette smoking. [facility] Surgical History No pertinent past surgical history Family History Mother Breast cancer Father Heart disease Other Mental health disorder Substance use disorder Social History Housing: House Alcohol intake: current Alcohol intake frequency: a few times a week Alcohol type: beer Patient Tobacco Use Status: Current everyday Tobacco user Tobacco use type: Cigarette Cigarette Packs Per Day: 0.5 Cigarettes Per Day: 10 e-Cigarette/Vaping Use: Never Used Second Hand Smoke Exposure: Yes Substance Use Type: Marijuana service: No Current occupational status: employed 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 Cognitive needs: No Hearing needs: No Vision needs: Yes (glasses) Review of Systems Const All systems reviewed & are unremarkable except as noted in HPI and below Physical Exam Vital Signs: Last Vital Signs BP 114/76 01/16/25 15:22 Oxygen Delivery Method Room Air 01/16/25 15:22 No apparent distress Nonicteric Abdomen soft, nondistended Alert and oriented x3, normal gait Assessment & Plan Assessment & Plan (1) Fatty liver: Code(s): K76.0 - Fatty (change of) liver, not elsewhere classified Category: Medical (2) Erythrocytosis: Code(s): D75.1 - Secondary polycythemia Category: Medical (3) Spleen enlarged: Code(s): R16.1 - Splenomegaly, not elsewhere classified Category: Medical (4) Alcohol use disorder: Code(s): F10.90 - Alcohol use, unspecified, uncomplicated Category: Medical (5) Obese: Code(s): E66.9 - Obesity, unspecified Category: Medical Qualifiers: Obesity type: due to excess calories Obesity classification: adult class 1 (BMI 30 - 34.9) Serious obesity comorbidity presence: without serious comorbidity Body mass index: BMI 32.0-32.9 Qualified Code(s): E66.09 - Other obesity due to excess calories; Z68.32 - Body mass index [BMI] 32.0-32.9, adult Plan 1. Elevated LFTs Likely 2/2 metALD - i.e combination of DONN and MASH. Ferritin and iron sat not indicative of iron overload. ceruloplasmin is high and not low. Hep serologies neg. Will get other labs to r/o A1AT, AIH etc. Plan: - Labs - Strict counseling for etOH cessation - 10% TBW loss in the next 6 months - 150 mins of moderate intensity exercise per week - follow up 4 months 2. Erythrocytosis Noted on labs. Referral to heme placed to r/o primary polycythemia. Follow up 4 months Orders: Orders Alpha 1 Anti-trypsin Today K76.0 - Fatty (change of) liver, not elsewhere classified Hemoglobin A1c Today K76.0 - Fatty (change of) liver, not elsewhere classified HIV Ab/Ag Today K76.0 - Fatty (change of) liver, not elsewhere classified Immunoglobulin G Today K76.0 - Fatty (change of) liver, not elsewhere classified IRON PROFILE Today K76.0 - Fatty (change of) liver, not elsewhere classified Liver Kidney Microsomal Ab Today K76.0 - Fatty (change of) liver, not elsewhere classified Prothrombin Time INR Today K76.0 - Fatty (change of) liver, not elsewhere classified Smooth Muscle Antibody Today K76.0 - Fatty (change of) liver, not elsewhere classified TSH reflex Free T4 Today K76.0 - Fatty (change of) liver, not elsewhere classified Alpha Fetoprotein Today K76.0 - Fatty (change of) liver, not elsewhere classified Gamma Glutamyl Transpeptidase Today K76.0 - Fatty (change of) liver, not elsewhere classified Immunoglobulin A Today K76.0 - Fatty (change of) liver, not elsewhere classified Phosphatidylethanol, Blood Today K76.0 - Fatty (change of) liver, not elsewhere classified Transglutaminase IgA Today K76.0 - Fatty (change of) liver, not elsewhere classified Referrals Hematology & Oncology Referral D75.1 - Secondary polycythemia, R16.1 - Splenomegaly, not elsewhere classified Coding Level of Care Code New Pt Level 4 (29949) Complex EM visit Add On G2211 Diagnoses Fatty liver K76.0 Erythrocytosis D75.1 Spleen enlarged R16.1 Alcohol use disorder F10.90 Class 1 obesity due to excess calories without serious comorbidity with body mass index (BMI) of 32.0 to 32.9 in adult E66.09; Z68.32 Obesity type: due to excess calories Obesity classification: adult class 1 (BMI 30 - 34.9) Serious obesity comorbidity presence: without serious comorbidity Body mass index: BMI 32.0-32.9
[2025-01-16 15:22] VITALS: BP 114/76; PULSE 88; O2SAT 98; BMI 31.2
== END 2025-01-16 15:37 | disposition home or self-care (01) ==
LOC: HO.HGI 15:05
PROVIDERS: PCP Physician Assistant; Visit Provider Internal Medicine
DX: K76.0 Fatty (change of) liver, not elsewhere classified (principal); D75.1 Secondary polycythemia; R16.1 Splenomegaly, not elsewhere classified; F10.90 Alcohol use, unspecified, uncomplicated; E66.09 Other obesity due to excess calories; Z68.32 Body mass index [BMI] 32.0-32.9, adult
CPT/HCPCS: 99204; G2211

== ENCOUNTER → 2025-01-30 08:10 | Outpatient (REF) | payer OTHER, SELFPAY ==
--- NOTE | 2025-01-30 08:13 | CA_ITS ---
Transthoracic Echocardiogram Patient (Last, First, Middle): Nicholas Bansal, Gender: Male Date of : 1995 Age: 29 Procedure Date: 01/30/2025 Procedure Type: Transthoracic Echocardiogram Location: OP Height: 175.26 cm Weight: 95.71 kg BSA: 2.11 m2 Heart Rate: bpm BP: 114 / 76 mmHg French Lecturer: KAVYA Referring MD: Pa Smith MD Symptoms: I47.10 - Supraventricular tachycardia, unspecified Study Quality: Adequate with contrast ECG Rhythm: Sinus Conclusions: - The left ventricular systolic function is normal. The calculated ejection fraction is 65% by biplane method. - No obvious valvular pathology seen on this study. - With agitated saline injection, possibly few bubbles crossing over during rest/ Valsalva but difficult to assess. No overt shunting. Findings Procedure Information Contrast agent, definity, is being given per protocol without apparent complications. Left Ventricle Normal left ventricular cavity size. The left ventricular systolic function is normal. The calculated ejection fraction is 65% by biplane method. There is no evidence of regional wall motion abnormalities. Diastolic function is normal for age. There is mild septal asymmetric hypertrophy. Right Ventricle Mildly increased right ventricular cavity size. There is normal right ventricular systolic function. Atria Both atria are normal in size. With agitated saline injection, possibly few bubbles crossing over during rest/ Valsalva but difficult to assess. No overt shunting. Aortic Valve There is a normal trileaflet aortic valve. There is no aortic valve stenosis. There is no aortic valve regurgitation. Mitral Valve The mitral valve appears normal. There is no mitral valve regurgitation. There is no mitral valve stenosis. Pulmonic Valve The pulmonic valve is likely normal. Tricuspid Valve There is trace tricuspid valve regurgitation. There is no evidence of pulmonary hypertension. Great Vessels The asc aorta and aortic arch are normal in size. Venous The inferior vena cava is normal in size and collapses less than 50% with inspiration. Pericardium/Pleural There is no evidence of pericardial effusion. Prior Study Comparison No prior study available for comparison. Recommendations, Care & Conclusions No obvious valvular pathology seen on this study. Measurements 2D Linear Measurements IVSd: 1.10 0.6-0.9/0.6-1.0 cm LVIDd: 4.89 3.9-5.3/4.2-5.9 cm LVIDd Index: 2.32 2.4-3.2/2.2-3.1 cm/m2 LVIDs: 2.94 2.0-3.6 cm LVPWd: 0.93 0.7-1.1 cm LV Mass: 223.02 67-162/88-224 g LV Mass Index: 105.70 43-95/49-115 g/m2 LVOT Diam: 2.50 3.0+(-)1.3 cm 2D Systolic Function EF 4C: 65.10 >55% EF 2C: 63.40 >55% EF BiP: 65.10 >55% Mitral Valve MV Pk E: 0.87 MV PK A: 1.04 MV Decel Time: 172.00 E/A: 0.80 E'Lateral: 14.50 E'Medial: 11.30 E/E' Med: 7.70 E/E' Lat: 6.00 PHT: 50.00 MVA PHT: 4.40 Decel Barren: 5.09 Aortic Valve AoV Pk Ascencion: 1.65 AoV Mn Ascencion: 1.17 AoV VTI: 0.28 AoV Pk Grad: 11.00 Aov Mn Grad: 6.00 RANDI Cont.VTI: 3.87 LVOT LVOT Pk Ascencion: 1.50 LVOT Mn Ascencion: 0.91 LVOT VTI: 0.22 LVOT Pk Grad: 9.00 LVOT Mn Grad: 4.00 LVOT Diam: 2.50 LVOT Area: 4.91 Diastolic Function MV Pk E: 0.87 MV Pk A: 1.04 E/A: 0.80 E'Medial: 11.30 E/E' Med: 7.70 E' Laterial: 14.50 E/E' Lat: 6.00 Right Ventricle TAPSE (mm): 23.00 TVS' Ascencion: 16.00 Tricuspid Valve TR Pk Ascencion: 2.26 TR Pk Grad: 20.00 RA Press: 3.00 RVSP: 23.00 Great Vessels Aorta Sinus of Valsalva: 3.28 2.0-3.[address] Ridge: 2.64 1.7-3.4 cm Ao Asc: 3.00 2.1-3.4 cm Ao Arch: 3.00 Updated in Other Vendor System with Status of Final Pa Smith MD electronically signed on 02/01/2025 11:14:32 AM with status of Final
--- OUTSIDE RECORDS SUMMARY | 2025-01-30 08:14 | XMS_ITS | Clinical Summary ---
Author Organization [facility] Address [address] [place] [address] Phone Care Team Providers Care Brain Picker Name Role Phone Physician, No Pcp Primary [...] complete this topic RSV Immunization Patients Un keshva 20 months Aged Out No longer eligible b ased on patient's age to complete this topic Varicella Vaccines Aged Out No longer eligible based on patient's age to complete this topic Insurance [facility] [employer] Care Teams Brain Picker Relationship Specialty Start Date End Date Physician, No Pcp PCP - General 07/11/24
== END ==
LOC: HO.CARD 08:10
PROVIDERS: PCP Physician Assistant; Visit Provider Internal Medicine
DX: I47.10 Supraventricular tachycardia, unspecified (principal)
CPT/HCPCS: 93306; Q9957

== ENCOUNTER → 2025-01-30 08:13 | Outpatient (BNV) | payer OTHER, SELFPAY | PROVIDERS: PCP Physician Assistant; Visit Provider Internal Medicine | DX: I42.2 Other hypertrophic cardiomyopathy (principal) | CPT/HCPCS: 93306 ==

== ENCOUNTER 2025-05-01 09:30 | Outpatient (AMB) | payer OTHER, SELFPAY ==
[2025-05-01 09:37] VITALS: BP 135/87; PULSE 101; BMI 30.6
--- NOTE | 2025-05-01 09:37 | A.OFFVIS_ITS ---
Vital Signs 05/01/25 09:37 Height 5 ft 9 in Weight 207 lb 3.752 oz BMI 30.6 BP 135/87 Blood Pressure Location Lt brachial Position Sitting Pulse 101 H Intake Visit Reasons: f/u LFTs Intake Note: Nicholas presents to in office today in follow up of LFTs. CC: Patient reports concerns about a lump from behind his Rt leg that he noticed about a month ago. Flight Agent Required: No Allergies amoxicillin Allergy (Intermediate, Verified 05/01/25 09:47) Hives Penicillins Allergy (Intermediate, Verified 05/01/25 09:47) Hives HPI Comments Details: 29 y.o M with PMH of etOH use disorder, tobacco use disorder, erythrocytosis who is here for elevated LFTs. Reports no abd pain, N,V,D. Has had elevated LFTs since 2022. Reports drinking 2 sleeves of nips in one sitting. No fam hx of liver disease. BMI 31. No DM. Reports cholesterol was yolanda was but unable to locate in his chart. US Abd with hepatosplenomegaly. Of note, H/H noted to be high as well. No hx of NOVA that pt reports. Has cut down cigarette smoking. 05/01/25: Here for follow up. Has not gotten labs done. Also did not [facility] appt. Here with his GF Medina. Reports cont to drink at least 4 times a week with one sleeve of nips and a few more hard drinks on top of that. Has cut down smoking, a pack lasts him 2-3 days. He is also concerned re R leg pain and swelling that he started noticing a few weeks ago. [facility] Surgical History No pertinent past surgical history Family History Mother Breast cancer Father Heart disease Other Mental health disorder Substance use disorder Social History Housing: House Alcohol intake: current Alcohol intake frequency: a few times a week Alcohol type: beer Patient Tobacco Use Status: Current everyday Tobacco user Tobacco use type: Cigarette Cigarette Packs Per Day: 0.5 Cigarettes Per Day: 10 e-Cigarette/Vaping Use: Never Used Second Hand Smoke Exposure: Yes Substance Use Type: Marijuana service: No Current occupational status: employed 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 Cognitive needs: No Hearing needs: No Vision needs: Yes (glasses) Review of Systems Const All systems reviewed & are unremarkable except as noted in HPI and below Physical Exam Exam Exam: No apparent distress Nonicteric Abdomen soft, nondistended no calf swelling or tenderness appreciated on exam Alert and oriented x3, normal gait Vital Signs: Last Vital Signs Pulse 101 H 05/01/25 09:37 BP 135/87 05/01/25 09:37 BMI result Body Mass Index 30.6 Assessment & Plan Assessment & Plan (1) Alcohol use disorder: Code(s): F10.90 - Alcohol use, unspecified, uncomplicated Category: Medical (2) Elevated liver enzymes: Code(s): R74.8 - Abnormal levels of other serum enzymes Category: Medical (3) Spleen enlarged: Code(s): R16.1 - Splenomegaly, not elsewhere classified Category: Medical (4) Erythrocytosis: Code(s): D75.1 - Secondary polycythemia Category: Medical (5) Leg pain: Code(s): M79.606 - Pain in leg, unspecified Category: Medical (6) Fatty liver: Code(s): K76.0 - Fatty (change of) liver, not elsewhere classified Category: Medical Plan 1. Elevated LFTs Likely 2/2 metALD - i.e combination of DONN and MASH. Ferritin and iron sat not indicative of iron overload. ceruloplasmin is high and not low. Hep serologies neg. Will get other labs to r/o A1AT, AIH etc. Unfortunately pt continues to drink. Reports withdrawal tremors on days when he skips etOH. Agreeable to [facility] referral. Plan: - Reminded to get labs done today - Repeat US abd - Strict counseling for etOH cessation - [facility] referral sent - 150 mins of moderate intensity exercise per week - follow up 6 months 2. Erythrocytosis Noted on labs. Possibly secondary from smoking ?copd. Plan: - Referral to heme was placed to r/o primary polycythemia. Pt missed multiple calls from their office. Number given to pt to call and [facility]. - Was also counseled on smoking cessation 3. R leg pain and swelling Pt concerned re DVT. Plan: - US ordered Follow up 6 months Orders: Orders US abdomen complete Today F10.90 - Alcohol use, unspecified, uncomplicated US venous duplex LE RT Today M79.606 - Pain in leg, unspecified Referrals Addiction Medicine Referral F10.90 - Alcohol use, unspecified, uncomplicated, Z72.0 - Tobacco use Coding Level of Care Code Est Pt Level 4 (29812) Diagnoses Alcohol use disorder F10.90 Elevated liver enzymes R74.8 Spleen enlarged R16.1 Erythrocytosis D75.1 Leg pain M79.606 Fatty liver K76.0
--- OUTSIDE RECORDS SUMMARY | 2025-05-01 10:23 | XMS_ITS | Clinical Summary ---
Author Organization [facility] Address [address] [place] [address] Phone Care Team Providers Care Retail Warehouse Supervisor Name Role Phone Physician, No Pcp Primary [...] 106 07/10/2024 4:33 AM EST Temperature 36.7 C (98.1 F) 07/10/2024 4:33 AM EST Respiratory Rate 16 07/10/2024 4:33 AM EST Oxygen Saturation 96% 07/10/2024 4:33 AM EST Inhaled Oxygen Concentration - - Weight - - Height - - Body Mass Index - - Plan of Treatment Health Maintenance Due Date Last Done Comments DTaP,Tdap,and Td Vaccines (1 - Tdap) 2012 Hepatitis B Vaccines (1 of 3 - 19+ 3-dose series) 2012 HIV Screening 07/10/2024 Hepatitis C Screening 07/10/2024 Social Influencers of Health Screening 07/10/2024 Depression Screening 08/29/2024 COVID-19 Vaccine (1 - 2023-2 5 season) 2025 Influenza Vaccine (#1) 2025 HIB Vaccines Aged Out No longer [...] 5 Years) and At-Risk Patients (6 to 49 Years) Aged Out No longer eligible b ased on patient's age to complete this topic RSV Immunization Patients Un keshav 20 months Aged Out No longer eligible b ased on patient's age to complete this topic Varicella Vaccines Aged Out No longer eligible based on patient's age to complete this topic Insurance Care Teams Retail Warehouse Supervisor Relationship Specialty Start Date End Date Physician, No Pcp PCP - General 07/11/24
--- OUTSIDE RECORDS SUMMARY | 2025-05-01 10:23 | XMS_ITS | Clinical Summary ---
Author Organization [facility] Address [address] [place] [address] Care Team Providers Care Insulator Technician Name Role Phone Unavailable Primary Care Provider Unavailabl e Social History Tobacco Use Types Packs/Day Years Used Date Smoking Tobacco: Never Assessed Sex and Gender Information Value Date Recorded Sex Assigned at Not on file Gender Identity Not on file Sexual Orientation Not on file Plan of Treatment Not on file
== END 2025-05-01 10:15 | disposition home or self-care (01) ==
LOC: HO.HGI 09:31
PROVIDERS: PCP Physician Assistant; Visit Provider Internal Medicine
DX: F10.90 Alcohol use, unspecified, uncomplicated (principal); R74.8 Abnormal levels of other serum enzymes; R16.1 Splenomegaly, not elsewhere classified; D75.1 Secondary polycythemia; M79.606 Pain in leg, unspecified; K76.0 Fatty (change of) liver, not elsewhere classified
CPT/HCPCS: 99214

== ENCOUNTER 2025-05-01 09:30 | Outpatient (REF) | payer OTHER, SELFPAY ==
[2025-05-01 11:11] LABS: INTERNATIONAL NORM RATIO 1.0 (0.9-1.1); Prothrombin Time 12.0 SEC (10.9-12.4)
[2025-05-01 11:27] LABS: Gamma Glutamyl Transpeptidase 513 U/L (11-51)
[2025-05-01 11:29] LABS: Alanine Aminotransferase 122 U/L (0-40); Albumin Level 4.8 g/dL (3.5-5.0); Alkaline Phosphatase 98 U/L (39-117); Anion Gap 17 (12-20); Aspartate Amino Transferase 151 U/L (5-37); Blood Urea Nitrogen 4 mg/dL (9-16); Calcium 9.4 mg/dL (8.4-10.2); Carbon Dioxide 23 mmol/L (22-29); Chloride 101 mmol/L (96-108); Estimated Glomerular Filt Rate > 60; Iron 155 mcg/dL (45-160); Percent Iron Saturation 42 % (15-50); Potassium 3.9 mmol/L (3.3-5.1); Sodium 137 mmol/L (135-145); Total Iron Binding Capacity 367 mcg/dL (228-428); Total Protein 7.9 g/dL (6.5-8.0); Unsaturated Iron Binding 212 ug/dL
[2025-05-01 11:37] LABS: Hemoglobin A1C 152.9955 umol/L; Total Hemoglobin (HGBA1C) 4518.7895 umol/L
[2025-05-01 11:57] LABS: Folate 3.2 ng/mL (> or = 4.0); Vitamin B12 392 pg/mL (200-900)
[2025-05-02 17:33] LABS: Immunoglobulin A 392 mg/dL (47-310); Immunoglobulin G 1158 mg/dL (600-1640)
[2025-05-03 12:38] LABS: HIV Num 1 0.05 S/CO (0.00-0.99)
[2025-05-05 14:58] LABS: Liver Kidney Microsomal Ab <=20.0 U (<=20.0)
[2025-05-06 10:37] LABS: Phosphatidylethanol 16:0-18:1 >400; Phosphatidylethanol 16:0-18:2 >400
== END 2025-05-01 09:31 | disposition home or self-care (01) ==
LOC: HO.LAB 09:30
PROVIDERS: Nurse Practitioner Family; Absent Provider Physician Assistant; PCP Physician Assistant; Visit Provider Internal Medicine
DX: F10.90 Alcohol use, unspecified, uncomplicated (principal); R74.8 Abnormal levels of other serum enzymes; R16.1 Splenomegaly, not elsewhere classified; R25.1 Tremor, unspecified; E53.8 Deficiency of other specified B group vitamins; R79.89 Other specified abnormal findings of blood chemistry; E50.9 Vitamin A deficiency, unspecified; E51.9 Thiamine deficiency, unspecified; K76.0 Fatty (change of) liver, not elsewhere classified; D75.1 Secondary polycythemia; M79.604 Pain in right leg; Z72.0 Tobacco use
CPT/HCPCS: 36415; 80053; 80307; 80321; 82103; 82105; 82306; 82390; 82525; 82607; 82746; 82784; 82977; 83036; 83090; 83540; 83921; 84425; 84443; 84590; 85610; 86015; 86364; 86376; 87389; 99212

== ENCOUNTER 2025-07-11 11:07 | Outpatient (AMB) | payer OTHER, SELFPAY ==
[2025-07-11 11:31] VITALS: BP 124/94; PULSE 96; TEMP 36.3; O2SAT 95; BMI 31.6
--- NOTE | 2025-07-11 11:31 | MHC.PC.OV ---
Vital Signs 07/11/25 11:31 Height 5 ft 9 in Weight 214 lb BMI 31.6 BP 124/94 H Blood Pressure Location Lt brachial Position Sitting Pulse 96 Pulse Source Pulse Oximeter Temp 97.3 F Temp Source Temporal Artery Scan Pulse Oximetry (%) 95 Oxygen Delivery Method Room Air Intake Visit Reasons: discuss disability paperwork Allergies amoxicillin Allergy (Intermediate, Verified 07/11/25 11:49) Hives Penicillins Allergy (Intermediate, Verified 07/11/25 11:49) Hives Medication List - Last Reconciled 07/11/25 by Ankit Elam PA-C cholecalciferol (vitamin D3) 1,250 mcg PO QWEEK 12 days cyanocobalamin (vitamin B-12) 500 mcg PO DAILY 30 days folic acid 1 mg PO DAILY gabapentin 1 cap qam and 2 caps qhs orally .; 30 days multivitamin 1 tab PO DAILY propranolol ER 60 mg PO DAILY 90 days [retinyl palmitate 10,000 IU po daily 90 days] riboflavin (vitamin B2) 400 mg PO DAILY 90 days thiamine HCl (vitamin B1) 100 mg PO DAILY 90 days Tobacco use date assessed: 07/11/25 Dental Screening Dental Screen Date: 07/11/25 Did you have a dental visit in the last 12 months?: Yes Did you have a dental problem in the last 6 months where you did not have access to dental care?: No Was dental information given to patient?: Patient has dentist HPI discuss disability paperwork HPI Details Patient is a 29-year-old male here today for follow-up visit. Patient has a past medical history significant for tobacco dependency, essential tremor, generalized anxiety disorder. .. Tremor: Patient reports persistent essential tremor affecting daily activities, including shaving and writing. He presents today to discuss disability paperwork due to debilitating tremors. The tremors significantly impact his activities of daily living, including shaving and brushing teeth, and have led to a fall down the stairs. 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 He is currently managed with propranolol and gabapentin, the latter providing some relief for sleep and anxiety though there is a concern about dependence. Previous attempts with primidone were discontinued due to mood-altering side effects.. He has been found to have vitamin B1 and B2 deficiency is the which has been supplemented with oral pills. He is considering applying for disability as he has not been able to work a steady job due to his tremor. PLAN: Will plan on doing occupational therapy to help him with him compensatory strategies Concern--> The patient also reports an intermittent, painful bump on his right leg and expresses concern about a potential blood clot due to a family history of an uncle who from one. .. Elevated liver enzymes: Followed by gastroenterology and liver enzymes remain elevated. He has drastically reduced his alcohol intake over last few weeks though still willing to see comprehensive treatment center for alcohol use disorder . Alcohol use disorder: Nicholas Reports drinking much less alcohol than he was before though still has a tremor issue. He is still interested in discussing treatment with comprehensive treatment center .. Elevated blood pressure readings: Blood pressure slightly elevated today in office. Tachycardia: Patient continues on propranolol. Has recently followed up with Cardiology about his Holter monitor which was essentially normal besides in his tachycardia. He is due for an echocardiogram for further evaluation. Laboratory Tests 05/16/23 07/16/24 05/01/25 16:28 16:34 10:59 MCV 102.9 H AST 118 H 104 H 151 H ALT 174 H 110 H 122 H GGT 513 H Vitamin A 14 L Vitamin B1 <6 L Vitamin B2 <5.0 L Homocysteine 82.5 H Ethyl Alcohol 23 PFSH Medical History Varicose veins of right lower extremity Surgical History No pertinent past surgical history Family History Mother Breast cancer Father Heart disease Other Mental health disorder Substance use disorder Social History Housing: House Alcohol intake: current Alcohol intake frequency: a few times a week Alcohol type: beer Patient Tobacco Use Status: Current everyday Tobacco user Tobacco use type: Cigarette Cigarette Packs Per Day: 0.5 Cigarettes Per Day: 2 e-Cigarette/Vaping Use: Never Used Second Hand Smoke Exposure: Yes Substance Use Type: Marijuana service: No Current occupational status: employed 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 1. Little interest or pleasure in doing things: several days 2. Feeling down, depressed, or hopeless: several days 3. Trouble falling or staying asleep, or sleeping too much: several days 4. Feeling tired or having little energy: several days 5. Poor appetite or overeating: not at all 6. Feeling bad about yourself - or that you are a failure or have let yourself or your family down: several days 7. Trouble concentrating on things, such as reading the newspaper or watching television: several days 8. Moving or speaking so slowly that other people could have noticed. Or the opposite - being so fidgety or restless that you have been moving around a lot more than usual: several days 9. Thoughts that you would be better off or of hurting yourself in some way: not at all Total score: 7 Depression Screening Interpretation: Positive Depression Screening Follow-up: Existing condition and In treatment Depression Screening Done: Yes Source: Developed by Drs. Ciaran Murillo, Renetta Campbell, Lam Clarke and colleagues, with an educational ashtyn from [employer]. Thrive Questionnaire Date Thrive assessed: 01/16/25 I am a: Patient What is your living situation today?: I do not have a steady places to live I am temporarily staying with others Within the past 12 months, did the food you bought not last and you didn't have the money to get more?: Sometimes True Within the past 12 months, did you worry whether your food would run out before you got money to buy more?: Sometimes True Do you have trouble paying for medicines?: No Do you have trouble getting transportation to medical appointments?: Yes Do you have trouble paying your heating and electricity bill?: No Do you have trouble taking care of your child, family member or friend?: No Do you have trouble with day-to-day activities such as bathing, preparing meals, shopping, managing finances, etc.?: Yes Are you currently unemployed and looking for a job?: Yes Are you interested in more education?: No Please select the resources that you would like help with: Daily support Currently or been in a relationship where the following occur: Controlled Financially THRIVE Score: 5 AUDIT C Alcohol Use Questionnaire (AUDIT-C) 1. How often do you have a drink containing alcohol?: 2-3 times a week 2. How many drinks containing alcohol do you have on a typical day when you are drinking?: 5 or 6 3. How often do you have six or more drinks on one occasion?: Less than monthly Total Score: 6 JB-7 AMB Questionnaire JB-7 Date JB - 7 assessed: 01/16/25 Feeling nervous, anxious, or on edge: 1 = Several days Not being able to stop or control worryin = Not at all Worrying too much about different things: 0 = Not at all Trouble relaxin = Not at all Being so restless that it is hard to sit still: 0 = Not at all Becoming easily annoyed or irritable: 0 = Not at all Feeling afraid as if something awful might happen: 0 = Not at all Total JB-7 score (0-4 normal; 5-9 mild; 10-14 moderate; 15-21 severe): 1 Source: Developed by Drs. Ciaran Murillo, Renetta Campbell, Lam Clarke and colleagues, with an educational ashtyn from [employer]. Review of Systems Const Denies headache(s) Eyes Denies loss of vision ENT Denies vertigo, Denies dizziness, Denies headache(s) and Denies sore throat Card Denies chest pain, Denies leg edema and Denies lightheadedness Resp Denies cough, Denies hemoptysis and Denies wheezing GI Denies abdominal pain, Denies melena, Denies constipation, Denies diarrhea and Denies vomiting Denies dysuria, Denies urinary frequency and Denies urinary urgency Musc Denies arthralgias, Denies joint swelling, Denies numbness and Denies tingling Neuro Denies Abnormal speech present, Denies behavioral changes, Denies vertigo, Denies dizziness, Denies headache(s), Denies loss of vision, Denies memory loss, Denies numbness and Denies tingling Psych Details: + Tremor Denies anxiety, Denies behavioral changes, Denies depression, Denies memory loss and Denies panic attacks Ezra/Lymph Denies easy bleeding and Denies easy bruising Aller/Immun Denies wheezing Physical exam (Primary Care) Vital Signs: Last Vital Signs Temp 97.3 F 07/11/25 11:31 Pulse 96 07/11/25 11:31 BP 124/94 H 07/11/25 11:31 Pulse Ox 95 07/11/25 11:31 Oxygen Delivery Method Room Air 07/11/25 11:31 BMI result Body Mass Index 31.6 Tobacco/Smoking Status: Tobacco use Status Tobacco use date assessed 07/11/25 07/11/25 11:35 Patient Tobacco Use Status Current everyday Tobacco 07/11/25 11:35 Tobacco use type Cigarette 07/11/25 11:35 e-Cigarette/Vaping Use Never Used 07/11/25 11:35 PHQ-9: PHQ-9 Score PHQ-9: Total score 7 07/11/25 11:35 Depression Screening Interpretation: Positive Depression Screening Follow-up: Existing condition and In treatment Thrive Assessment: Date of Thrive Assessment Date Thrive assessed 01/16/25 07/11/25 11:35 Currently or been in a relationship where the following occur: Controlled Financially Const General: healthy appearing, no acute distress, alert and awake Nutritional Appearance: well nourished Orientation/consciousness: oriented to person, oriented to place and oriented to time HENMT Ears: TM's normal bilaterally General nose exam: Normal nasal mucous membranes and turbinates present Eyes Conjunctivae: conjunctivae normal Sclerae: sclerae normal Pupils: Equal, round and reactive pupils present Neck Neck: Yes no lymphadenopathy and Yes no JVD Thyroid: Thyroid normal Carotids: no bruits Resp Effort & Inspection: normal respiratory effort and not tachypneic Auscultation: no crackles, no rales, no rhonchi and no wheezes Cardio Rate: regular rate Rhythm: regular rhythm Heart sounds: no murmurs and normal S1 and S2 GI Palpation (GI): Soft to palpation, nontender, no hepatomegaly and no splenomegaly Auscultation: normal bowel sounds Skin General skin exam: no rashes or lesions noted and dry skin Neuro General: oriented to person, oriented to place and oriented to time Cranial nerves: Yes Equal, round and reactive pupils present Speech: No Abnormal speech present Gait exam (Neuro): Normal gait present Motor exam (neuro): no tremor noted Extrem Right upper extremity: full ROM Left upper extremity: full ROM Right lower extremity: full ROM; no edema Left lower extremity: full ROM; no edema Psych Mental Status: mental status grossly normal Speech and movement: Normal speech and movement present Affect: normal affect Attitude: cooperative Thought process: Normal thought process present Coding Level of Care Code Est Pt Level 4 (38601) Diagnoses Varicose veins of right lower extremity I83.91 Lower extremity ulceration location: calf Non-pressure ulcer stage: with other severity Loose stools R19.5 Tremor R25.1 SVT (supraventricular tachycardia) I47.10 Elevated liver enzymes R74.8 Alcohol use disorder F10.90 Assessment & Plan Assessment & Plan (1) Varicose veins of right lower extremity: Code(s): I83.91 - Asymptomatic varicose veins of right lower extremity Category: Medical Qualifiers: Lower extremity ulceration location: calf Non-pressure ulcer stage: with other severity Plan: For the symptomatic varicose vein on the right leg, a referral will be placed to a vascular specialist for evaluation. An ultrasound of the right leg will be ordered to rule out a deep vein thrombosis, primarily to address the patient's concerns stemming from his family history. (2) Loose stools: Code(s): R19.5 - Other fecal abnormalities Category: Medical Plan: Advised on increasing fiber in his diet to help both stool and reduce bowel frequency (3) Tremor: Comment: postural and action tremors - essential tremors, multifactorial Code(s): R25.1 - Tremor, unspecified Category: Medical Plan: Documentation will be provided to support the patient's application for Social Security Disability, detailing the functional limitations imposed by his severe tremors on his ability to work and perform activities of daily living. Managed with propranolol ; exploring occupational therapy for daily task strategies. Patient is responding to medication but cautious about gabapentin dependency. (4) SVT (supraventricular tachycardia): Code(s): I47.10 - Supraventricular tachycardia, unspecified Category: Medical Plan: As per HPI patient did follow up with Cardiology and reviewed his Holter monitor which essentially was stable. He is due for echocardiogram for further cardiac workup. Tachycardia thought to be due to his excessive alcohol intake. (5) Elevated liver enzymes: Code(s): R74.8 - Abnormal levels of other serum enzymes Category: Medical Plan: Continues to have fairly elevated liver enzymes. Continues to follow gastroenterology. Did have an ultrasound of his abdomen that did show signs consistent with fatty liver and mild splenomegaly. Again advised on completely quitting drinking (6) Alcohol use disorder: Code(s): F10.90 - Alcohol use, unspecified, uncomplicated Category: Medical Plan: Referrals will be re-submitted for the [email or web address] for alcohol use counseling and to occupational therapy for developing compensatory strategies for tremor management. Orders: Orders OT Evaluation and Treatment Today R25.1 - Tremor, unspecified Referrals Addiction Medicine Referral F10.90 - Alcohol use, unspecified, uncomplicated Vascular Surgery Referral I83.91 - Asymptomatic varicose veins of right lower extremity Medications: Discontinued gabapentin Discontinued Reason: Doctor's Order 1 cap qam and 2 caps qhs orally .; 30 days 90 caps 2RF G57.90 - Unspecified mononeuropathy of unspecified lower limb
--- OUTSIDE RECORDS SUMMARY | 2025-07-11 14:00 | XMS_ITS | Clinical Summary ---
Author Organization [facility] Address [address] [place] [address] Care Team Providers Care Security Trainer Name Role Phone Unavailable Primary Care Provider Unavailabl e Social History Tobacco Use Types Packs/Day Years Used Date Smoking Tobacco: Never Assessed Sex and Gender Information Value Date Recorded Sex Assigned at Not on file Gender Identity Not on file Sexual Orientation Not on file Plan of Treatment Not on file
--- OUTSIDE RECORDS SUMMARY | 2025-07-11 14:00 | XMS_ITS | Clinical Summary ---
Author Organization [facility] Address [address] [place] [address] Phone Care Team Providers Care Procurement Forester Name Role Phone Physician, No Pcp Primary [...] of 3 - 19+ 3-dose series) 2012 HPV Vaccines (1 - 3-dose SCD M series) 2020 HIV Screening 07/10/2024 Hepatitis C Screening 07/10/2024 Social Influencers of Health Screening 07/10/2024 Depression Screening 08/29/2024 COVID-19 Vaccine ( - 2024-2 6 season) 2025 Influenza Vaccine (#1) 2025 RSV Immunization Adult Patie nts (1 - 1-dose 75+ series) 2068 HIB Vaccines Aged Out No longer eligi [...] patient's age to complete this topic Insurance [facility] Care Teams Procurement Forester Relationship Specialty Start Date End Date Physician, No Pcp PCP - General 07/11/24
== END 2025-07-11 12:06 | disposition home or self-care (01) ==
LOC: HO.HMCH 11:08
PROVIDERS: PCP Physician Assistant; Visit Provider Physician Assistant
DX: I83.91 Asymptomatic varicose veins of right lower extremity (principal); R19.5 Other fecal abnormalities; R25.1 Tremor, unspecified; I47.10 Supraventricular tachycardia, unspecified; R74.8 Abnormal levels of other serum enzymes; F10.90 Alcohol use, unspecified, uncomplicated

== ENCOUNTER → 2025-07-11 11:07 | Outpatient (BNVA) | payer OTHER, SELFPAY | PROVIDERS: PCP Physician Assistant; Visit Provider Physician Assistant | DX: R03.0 Elevated blood-pressure reading, without diagnosis of hypertension (principal); R25.1 Tremor, unspecified; R74.8 Abnormal levels of other serum enzymes; F10.90 Alcohol use, unspecified, uncomplicated; I83.91 Asymptomatic varicose veins of right lower extremity; R19.5 Other fecal abnormalities; I47.10 Supraventricular tachycardia, unspecified; G57.90 Unspecified mononeuropathy of unspecified lower limb | CPT/HCPCS: 99212 ==

== ENCOUNTER 2025-08-14 09:59 | Outpatient (AMB) | payer OTHER, SELFPAY ==
[2025-08-14 10:10] VITALS: BP 130/80; PULSE 98; O2SAT 94; BMI 32.3
--- NOTE | 2025-08-14 10:10 | A.OFFVIS_ITS ---
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 Accompanied by: Self / Same As Patient Allergies amoxicillin Allergy (Intermediate, Verified 08/14/25 10:12) Hives Penicillins Allergy (Intermediate, Verified 08/14/25 10:12) Hives Medication List - Last Reconciled 08/14/25 by GUERLINE Vasquez cholecalciferol (vitamin D3) 1,250 mcg PO QWEEK 12 days cyanocobalamin (vitamin B-12) 500 mcg PO DAILY 30 days folic acid 1 mg PO DAILY multivitamin 1 tab PO DAILY propranolol ER 60 mg PO DAILY 90 days [retinyl palmitate 10,000 IU po daily 90 days] riboflavin (vitamin B2) 400 mg PO DAILY 90 days thiamine HCl (vitamin B1) 100 mg PO DAILY 90 days HPI Comments Details: 29-yr-old male presents for f/u visit of BLE paresthesias and tremor. He was last seen by myself in August 2024, due to insurance issues. Alcohol use : now 1-3 shots 1-2 x's per week down from 4 times per week of heavy drinking (> 1 sleeve of nips). He is under close follow-up from [facility], and has seen [facility] as well. He reports that he has episodes of BUE tremors, which triggers anxiety, and is followed by headache and tinnitus, and then the headache and tinnitus, but is f/b the tremor for almost another hour. The tremors come at least 10 times per day, especially when around family, other people, or in the public. He is taking propranolol ER 60mg daily. He stopped primidone, possibly worsened his mood. He states he is compliant with all of his supplements. Today he notes that his tremors started at age 10, and has a strong family h/o of tremor. 09/20/2024, HPI: Since his last visit, his lab work showed elevated HGB, MCV, ferritin, LFTs, and ceruloplasmin 35 H. Low normal B12 300. And vitamin A, B1 B2, D, folate deficiency. Since, patient has started on a vitamin a, thiamine, riboflavin, D, folate and B12 supplement. He reports he is feeling better since starting the supplements. He is trying to drink less alcohol. He does use tobacco and marijuana, not daily. He does not vape at all. He continues to have painful tingling/stabbing in bilateral feet. He does notices during the day and night, however it is worse at night when he is trying to sleep. States gabapentin does help this, however his pharmacy has not refilled this for him in a couple of weeks. He denies symptoms or history of restlessness, urgency to move, creepy crawly sensation. He has been compliant with ropinirole, however he was not sure why he was taking this and wonders if he can stop it. His tremors are mild, however he can become embarrassed because of his tremors especially if he has to write him for an somebody else. States he has been taking primidone. And was recently started on metoprolol. Pt could not fully complete 02/08/2024 brain and c-spine MRI- however no significant findings noted. 01/18/2024 BLE EMG/NCS- was normal. 07/16/24 16:34 WBC 10.3 RBC 4.59 L Hgb 18.3 H Hct 51.9 MCV 113.1 H MCH 39.9 H MCHC 35.3 RDW 13.8 Plt Count 314 D MPV 9.5 Sodium 137 Potassium 3.8 Chloride 107 Carbon Dioxide 21 L Anion Gap 13 BUN 6 L Creatinine 0.74 Estimated GFR > 60 Random Glucose 135 H Estimat Average Glucose 91 Hemoglobin A1c % 4.8 Calcium 9.2 Iron 118 TIBC 387 % Saturation 30 Unsat Iron Binding 269 Ferritin 393 H Total Bilirubin 1.1 H AST 104 H ALT 110 H Alkaline Phosphatase 75 Total Creatine Kinase 20 L Total Protein 7.3 Albumin 4.3 Ceruloplasmin 35 H Vitamin A 14 L Vitamin B1 <6 L Vitamin B2 <5.0 L Pantothenic Acid <=40 Vitamin B12 300 25-OH Vitamin D Total 17 L 25-Hydroxy Vitamin D2 <4 Nicotinic Acid <20 25-Hydroxy Vitamin D3 17 Vitamin B6 8.2 Alpha-Tocopherol Vit E 5.9 B- and G-Tocopherol <1.0 Vitamin K1 238 Folate 3.4 L TSH 1.51 Rheumatoid Factor < 13.0 MARY Screen NEGATIVE [facility] Medical History Varicose veins of right lower extremity Surgical History No pertinent past surgical history Family History Mother Breast cancer Father Heart disease Other Mental health disorder Substance use disorder Social History Housing: House Alcohol intake: current Alcohol intake frequency: a few times a week Alcohol type: beer Patient Tobacco Use Status: Current everyday Tobacco user Tobacco use type: Cigarette Cigarette Packs Per Day: 0.5 Cigarettes Per Day: 2 e-Cigarette/Vaping Use: Never Used Second Hand Smoke Exposure: Yes Substance Use Type: Marijuana service: No Current occupational status: employed 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 Cognitive needs: No Hearing needs: No Vision needs: Yes (glasses) Physical Exam Vital Signs: Last Vital Signs Pulse 98 08/14/25 10:10 BP 130/80 08/14/25 10:10 Pulse Ox 94 08/14/25 10:10 Oxygen Delivery Method Room Air 08/14/25 10:10 BMI result Body Mass Index 32.3 Const General: cooperative and no acute distress Resp Effort & Inspection: normal respiratory effort and able to speak in complete sentences Neuro Other: General: A&O x's 3 Expression: Intact Voice: Intact Tremor: BUE postural tremor, increased with holding a weighted can and demonstrating pouring it Gait: Stands easily, slight antalgic but steady gait, Psych: Pleasant affect Assessment & Plan Assessment & Plan (1) Tremor: Comment: postural and action tremors - essential tremors, multifactorial Code(s): R25.1 - Tremor, unspecified Category: Medical (2) Low vitamin B12 level: Code(s): R79.89 - Other specified abnormal findings of blood chemistry Category: Medical (3) Vitamin A deficiency: Code(s): E50.9 - Vitamin A deficiency, unspecified Category: Medical (4) Vitamin B1 deficiency: Code(s): E51.9 - Thiamine deficiency, unspecified Category: Medical (5) Folate deficiency: Code(s): E53.8 - Deficiency of other specified B group vitamins Category: Medical (6) JB (generalized anxiety disorder): Code(s): F41.1 - Generalized anxiety disorder Category: Medical (7) Alcohol use disorder: Code(s): F10.90 - Alcohol use, unspecified, uncomplicated Category: Medical Plan Reviewed interval lab work- still notable for multiple nutritional deficiencies. Concur with request for hematology consult. Continue on vitamin-A, thiamine, riboflavin, D, folate, B12 supplementation. Recheck labs as ordered Follow-up with ophthalmology as scheduled Continue propranolol ER 60 mg daily as ordered He has stopped gabapentin 300 mg q.a.m. and 600 mg q.h.s. He has stopped ropinirole. He agrees to psychology referral today, to help him with anxiety and stress management. Commended his efforts to reduce alcohol intake. He does decline referral to addiction Medicine Clinic, however will consider. Information shared on adaptive strategies from the [employer]. f/u in 6 months or sooner prn. Orders: Referrals Psychology Referral F10.90 - Alcohol use, unspecified, uncomplicated, F41.1 - Generalized anxiety disorder, R25.1 - Tremor, unspecified Medications: New sumatriptan succinate 50 - 100 mg orally at onset of headache, may repeat in 2 hrs PRN; max 2 tabs per day or 4 tabs/week (may take with Ibuprofen) 12 tabs 6RF migraine headache 30 days Changed From cyanocobalamin (vitamin B-12) 500 mcg PO DAILY 30 days 30 tabs 6RF To cyanocobalamin (vitamin B-12) 500 mcg PO DAILY 90 tabs 4RF 90 days From folic acid 1 mg PO DAILY 90 tabs 0RF To folic acid 1 mg PO DAILY 90 tabs 1RF 90 days Refilled riboflavin (vitamin B2) 400 mg PO DAILY 90 tabs 4RF 90 days thiamine HCl (vitamin B1) 100 mg PO DAILY 90 tabs 4RF 90 days cholecalciferol (vitamin D3) 1,250 mcg PO QWEEK 12 caps 1RF 12 days E55.9 - Vitamin D deficiency, unspecified [retinyl palmitate] 10,000 IU po daily 90 tabs 1RF 90 days propranolol ER 60 mg PO DAILY 90 caps 1RF 90 days R00.2 - Palpitations Coding Level of Care Code Est Pt Level 4 (59979) Diagnoses Tremor R25.1 Low vitamin B12 level R79.89 Vitamin A deficiency E50.9 Vitamin B1 deficiency E51.9 Folate deficiency E53.8 JB (generalized anxiety disorder) F41.1 Alcohol use disorder F10.90
--- OUTSIDE RECORDS SUMMARY | 2025-08-14 12:10 | XMS_ITS | Clinical Summary ---
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
--- OUTSIDE RECORDS SUMMARY | 2025-08-14 12:10 | XMS_ITS | Clinical Summary ---
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
== END 2025-08-14 11:14 | disposition home or self-care (01) ==
LOC: HO.HSMS 10:00
PROVIDERS: PCP Physician Assistant; Visit Provider Nurse Practitioner Family
DX: R25.1 Tremor, unspecified (principal); R79.89 Other specified abnormal findings of blood chemistry; E50.9 Vitamin A deficiency, unspecified; E51.9 Thiamine deficiency, unspecified; E53.8 Deficiency of other specified B group vitamins; F41.1 Generalized anxiety disorder; F10.90 Alcohol use, unspecified, uncomplicated
CPT/HCPCS: 99214

== ENCOUNTER → 2025-08-14 09:59 | Outpatient (BNVA) | payer OTHER, SELFPAY | PROVIDERS: PCP Physician Assistant; Visit Provider Nurse Practitioner Family | DX: R25.1 Tremor, unspecified (principal); F41.1 Generalized anxiety disorder; E50.9 Vitamin A deficiency, unspecified; E51.9 Thiamine deficiency, unspecified; E53.8 Deficiency of other specified B group vitamins; E55.9 Vitamin D deficiency, unspecified; R79.89 Other specified abnormal findings of blood chemistry; F10.90 Alcohol use, unspecified, uncomplicated; R00.2 Palpitations; Z79.899 Other long term (current) drug therapy | CPT/HCPCS: 99212 ==